=== PATIENT | male | born 1945 | race Caucasian/White ===

== ENCOUNTER → 2016-10-31 | Outpatient (CLI) | payer MEDICARE | LOC: MW.CHFP 08:00 | PROVIDERS: ATTEND Emergency Medicine | DX: Z51.81 Encounter for therapeutic drug level monitoring (principal); Z79.01 Long term (current) use of anticoagulants; I48.91 Unspecified atrial fibrillation | CPT/HCPCS: 85610; 99211 ==

== ENCOUNTER → 2016-12-01 | Outpatient (CLI) | payer MEDICARE | LOC: MW.CHFP 08:00 | PROVIDERS: ATTEND Emergency Medicine | DX: Z51.81 Encounter for therapeutic drug level monitoring (principal); Z79.01 Long term (current) use of anticoagulants; I48.91 Unspecified atrial fibrillation | CPT/HCPCS: 85610; 99211 ==

== ENCOUNTER → 2017-01-02 | Outpatient (CLI) | payer MEDICARE | LOC: MW.CHFP 08:00 | PROVIDERS: ATTEND Emergency Medicine | DX: Z51.81 Encounter for therapeutic drug level monitoring (principal); Z79.01 Long term (current) use of anticoagulants; I48.91 Unspecified atrial fibrillation | CPT/HCPCS: 85610; 99211 ==

== ENCOUNTER 2017-01-14 13:00 | Emergency (ER) | payer MEDICARE ==
--- NOTE | 2017-01-14 14:36 | EDM.PDOC ---
ED HPI GENERAL MEDICAL PROBLEM - General Chief Complaint: Respiratory Problem Stated Complaint: LOW ENERGY/NOT FEELING WELL Time Seen by Provider: 01/14/17 13:30 Source of Information: Reports: Patient (poor historian), Family () History Limitations: Reports: No Limitations - History of Present Illness INITIAL COMMENTS - FREE TEXT/NARRATIVE: Presents with his . The patient states that he was to see Dr. Cheney and Dr. Davison in [place] one week ago. They are his usual cardiology care givers. At that time and they made a change in his medication from Amiodarone and digitoxin to quinidine and Mexiletine. He states that the doctors told him the reason they changed his medicines is that they had "outgrown their usefulness ". For the past week, since they changed his medications around he has been experiencing weakness and he gets short of breath when he walks in his house. He did not go see his primary care provider Dr. Shields here in [facility] but instead came to the ER. He denies chest pain, fever, nausea, vomiting or shortness of breath at rest or during the night. - Related Data Allergies Allergy/AdvReac Type Severity Reaction Status Date / Time No Known Allergies Allergy Verified 01/14/17 13:07 Home Meds: Home Meds Aspirin 81 mg PO ONETIME 07/14/16 [History] Carvedilol 25 mg PO BID 07/14/16 [History] Fosinopril [Monopril] 40 mg PO DAILY 07/14/16 [History] Furosemide [Lasix] 80 mg PO DAILY 07/14/16 [History] Glimepiride 2 mg PO WITHBREAKFAST 07/14/16 [History] Insulin Glarg,Human.Rec.Analog [LantUS Solostar] 38 unit SUBCUT DAILY 07/14/16 [ History] Multivitamin [One Daily] 1 each PO DAILY 07/14/16 [History] Nitroglycerin [Nitrostat] 0.4 mg SL ASDIRECTED PRN 07/14/16 [History] Rosuvastatin [Crestor] 10 mg PO BEDTIME 07/14/16 [History] Spironolactone [Aldactone] 25 mg PO DAILY 07/14/16 [History] Warfarin [Coumadin] 5 mg PO DAILY 07/14/16 [History] Mexiletine HCl 150 mg PO DAILY 01/14/17 [History] Temazepam 15 mg PO BEDTIME 01/14/17 [History] quiNIDine Gluconate [Quinidine Gluconate] 324 mg PO DAILY 01/14/17 [History] Past Medical History HEENT History: Reports: Hard of Hearing Cardiovascular History: Reports: Aneurysm, Automatic Implantable Cardioverter Defibrillators, Bypass, Pacemaker Endocrine/Metabolic History: Reports: Diabetes, Type II - Past Surgical History HEENT Surgical History: Reports: None Cardiovascular Surgical History: Reports: None Endocrine Surgical History: Reports: None Social & Family History - Family History Family Medical History: Noncontributory - Tobacco Use Smoking Status *Q: Former Smoker Used Tobacco, but Quit: Yes Month Tobacco Last Used: 20 years ago Second Hand Smoke Exposure: No - Caffeine Use Caffeine Use: Reports: Coffee Caffeine Use Comment: 2-3 cups/day - Recreational Drug Use Recreational Drug Use: No ED ROS GENERAL - Review of Systems Review Of Systems: ROS reveals no pertinent complaints other than HPI. 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 time) Respiratory/Chest: No Respiratory Distress, Lungs Clear, Normal Breath Sounds Cardiovascular: Normal Peripheral Pulses, Regular Rate, Rhythm, No Murmur, Other (Mild ankle edema which the patient states he has had for a long time) GI/Abdominal: Normal Bowel Sounds, Soft Back Exam: Normal Inspection Extremities: Normal Inspection Neurological: Alert, Oriented, Normal Cognition, Other (Cheerful and joking) Psychiatric: Normal Affect, Normal Mood Skin Exam: Warm, Dry, Intact, Normal Color, No Rash Lymphatic: No Adenopathy Course - Vital Signs Last Recorded V/S: Last Vital Signs Temp Pulse 72 01/14/17 14:41 Resp 20 01/14/17 14:41 BP 98/57 L 01/14/17 14:41 Pulse Ox 97 01/14/17 14:41 - Orders/Labs/Meds Orders: Active Orders 24 hr Category Date Time Status EKG Documentation Completion [RC] STAT Care 01/14/17 13:44 Active Chest 2V [CR] Stat Exams 01/14/17 13:45 Ordered Labs: Laboratory Tests 01/14/17 01/14/17 01/14/17 Range/Units 13:38 13:38 13:38 WBC 8.67 (4.0-11.0) K/uL RBC 3.53 L (4.50-5.90) M/uL Hgb 10.7 L (13.0-17.0) g/dL Hct 33.8 L (38.0-50.0) % MCV 95.8 (80.0-98.0) fL MCH 30.3 (27.0-32.0) pg MCHC 31.7 (31.0-37.0) g/dL RDW Std Deviation 59.0 (28.0-62.0) fl RDW Coeff of Kierra 17 H (11.0-15.0) % Plt Count 164 (150-400) K/uL MPV 9.80 (7.40-12.00) fL Neut % (Auto) 78.2 (48.0-80.0) % Lymph % (Auto) 11.8 L (16.0-40.0) % [place] % (Auto) 8.3 (0.0-15.0) % Eos % (Auto) 1.4 (0.0-7.0) % Baso % (Auto) 0.3 (0.0-1.5) % Neut # (Auto) 6.8 H (1.4-5.7) K/uL Lymph # (Auto) 1.0 (0.6-2.4) K/uL [place] # (Auto) 0.7 (0.0-0.8) K/uL Eos # (Auto) 0.1 (0.0-0.7) K/uL Baso # (Auto) 0.0 (0.0-0.1) K/uL Nucleated RBC % 0.0 /100WBC Nucleated RBCs # 0 K/uL Sodium 133 L (136-146) mmol/L Potassium 5.0 (3.5-5.1) mmol/L Chloride 102 (98-110) mmol/L Carbon Dioxide 19 L (21-31) mmol/L BUN 43 H (6.0-23.0) mg/dL Creatinine 2.4 H (0.6-1.5) mg/dL Est Cr Clr Drug Dosing 27.41 mL/min Estimated GFR (MDRD) 26.7 ml/min Glucose 239 H (60-110) mg/dL Calcium 8.3 L (8.8-10.8) mg/dL Total Bilirubin 0.8 (0.1-1.5) mg/dL AST 19 (5-40) IU/L ALT 19 (8-54) IU/L Alkaline Phosphatase 41 (40-150) Troponin I < 0.10 (0.0-0.29) NG/ML B-Natriuretic Peptide (<100) PG/ML Total Protein 6.9 (6.0-8.0) g/dL Albumin 4.1 (3.4-4.8) g/dL Globulin 2.8 (2.0-3.5) g/dL Albumin/Globulin Ratio 1.5 (1.3-2.8) 01/14/17 Range/Units 13:38 WBC (4.0-11.0) K/uL RBC (4.50-5.90) M/uL Hgb (13.0-17.0) g/dL Hct (38.0-50.0) % MCV (80.0-98.0) fL MCH (27.0-32.0) pg MCHC (31.0-37.0) g/dL RDW Std Deviation (28.0-62.0) fl RDW Coeff of Kierra (11.0-15.0) % Plt Count (150-400) K/uL MPV (7.40-12.00) fL Neut % (Auto) (48.0-80.0) % Lymph % (Auto) (16.0-40.0) % [place] % (Auto) (0.0-15.0) % Eos % (Auto) (0.0-7.0) % Baso % (Auto) (0.0-1.5) % Neut # (Auto) (1.4-5.7) K/uL Lymph # (Auto) (0.6-2.4) K/uL [place] # (Auto) (0.0-0.8) K/uL Eos # (Auto) (0.0-0.7) K/uL Baso # (Auto) (0.0-0.1) K/uL Nucleated RBC % /100WBC Nucleated RBCs # K/uL Sodium (136-146) mmol/L Potassium (3.5-5.1) mmol/L Chloride (98-110) mmol/L Carbon Dioxide (21-31) mmol/L BUN (6.0-23.0) mg/dL Creatinine (0.6-1.5) mg/dL Est Cr Clr Drug Dosing mL/min Estimated GFR (MDRD) ml/min Glucose (60-110) mg/dL Calcium (8.8-10.8) mg/dL Total Bilirubin (0.1-1.5) mg/dL AST (5-40) IU/L ALT (8-54) IU/L Alkaline Phosphatase (40-150) Troponin I (0.0-0.29) NG/ML B-Natriuretic Peptide 310 H (<100) PG/ML Total Protein (6.0-8.0) g/dL Albumin (3.4-4.8) g/dL Globulin (2.0-3.5) g/dL Albumin/Globulin Ratio (1.3-2.8) - Re-Assessments/Exams Free Text/Narrative Re-Assessment/Exam: 01/14/17 15:26 Dr. Shields, his primary care physician stop by the ER and the case was reviewed with him Free Text/Narrative Re-Assessment/Exam: 01/14/17 15:27 Discussion with patient that his chest x-ray and EKG is unchanged from previous. He is mildly anemic and has some renal failure. The patient states that he has had a kidney problem for a long time. He states he will followup with Dr. Shields early next week. Departure - Departure Time of Disposition: 15:28 Disposition: Home, Self-Care 01 Condition: good Clinical Impression: Exercise intolerance - Discharge Information Forms: ED Department Discharge Additional Instructions: 1. Follow up with Dr. Shields as discussed. Return promptly for chest pain, shortness of breath at rest, vomiting. - My Orders Last 24 Hours: My Active Orders 01/14/17 13:44 EKG Documentation Completion [RC] STAT 01/14/17 13:45 Chest 2V [CR] Stat - Assessment/Plan Last 24 Hours: My Active Orders 01/14/17 13:44 EKG Documentation Completion [RC] STAT 01/14/17 13:45 Chest 2V [CR] Stat
[2017-01-14 18:16] VITALS: BP 91/60
--- NOTE | 2017-01-16 14:36 | CR ---
EXAM DATE: 01/14/17 PATIENT'S AGE: 71 Patient: TERRENCE ROBERTSON Facility: [place], [place] Site . Site : 1945 Study: XRay Chest [id number]/3/2017 2:17:55 PM Ordering Physician: Doctor Foley Final Report: INDICATION: Shortness of breath on exertion. Technique: Chest 2 views. Comparison: September 2016. Impression: Stable cardiomegaly, pacemaker/ICD placement. Stable cardiomegaly and pulmonary vascularity. Stable mild diffuse prominence of the pulmonary interstitium. No consolidation effusion or pneumothorax with no other significant change. Dictated by Néstor Love MD @ Jan 14 2017 2:21PM (Electronic Signature) Report Signed by Proxy. RAUL
== END 2017-01-14 15:45 | disposition home or self-care (01) ==
LOC: MW.ED 13:00
DX: R68.89 Other general symptoms and signs (principal); E11.9 Type 2 diabetes mellitus without complications; Z95.810 Presence of automatic (implantable) cardiac defibrillator; Z95.0 Presence of cardiac pacemaker; Z95.1 Presence of aortocoronary bypass graft; Z79.82 Long term (current) use of aspirin; Z79.01 Long term (current) use of anticoagulants; Z79.4 Long term (current) use of insulin; Z79.899 Other long term (current) drug therapy; Z87.891 Personal history of nicotine dependence
CPT/HCPCS: 71020; 71020-26; 80053; 83880; 84484; 85025; 93005; 99283; 99285-25

== ENCOUNTER 2017-01-20 04:14 | Inpatient (IN) | payer MEDICARE ==
[2017-01-20] MEDS ORDERED: Bumetanide 1 MG/4 ML MDV IVPUSH ONE (04:38)
--- NOTE | 2017-01-20 06:38 | EDM.PDOC ---
ED HPI GENERAL MEDICAL PROBLEM - General Chief Complaint: Neurological Problem Stated Complaint: WEAKNESS Time Seen by Provider: 01/20/17 04:17 Source of Information: Reports: Patient, Family History Limitations: Reports: No Limitations - History of Present Illness INITIAL COMMENTS - FREE TEXT/NARRATIVE: HISTORY AND PHYSICAL: History of present illness: [71-year-old male with a history of CHF and a pacemaker in place now presents emergency department complaining of worsening shortness of breath. Per patient has a baseline of mild tachypnea however he is weaker and slightly more short of breath than normal for him currently. He also has a history of renal insufficiency. Patient was at his baseline last night and went to bed in his own bed. His are to get up and then found him after he had slumped to the floor. Patient was too weak to get up himself and he seemed confused. EMS was called and patient was found to be hypoxic. His oxygen was supplemented. On arrival in emergency department he is alert and communicative and at his mental status baseline. He continues to be weak and reports slightly more short of breath than usual he is also had increased lower extremity swelling as well as orthopnea. He reports being compliant with his Lasix and his mental health worker is in [place]. No chest pain fevers chills sweats or shaking chills] per EMS blood glucose was 189 on seen Review of systems: , As per history of present illness and below otherwise all systems reviewed and negative. Past medical history: As per history of present illness and as reviewed below otherwise noncontributory. Surgical history: As per history of present illness and as reviewed below otherwise noncontributory. Social history: No reported history of drug or alcohol abuse. Family history: As per history of present illness and as reviewed below otherwise noncontributory. Physical exam: HEENT: Atraumatic, normocephalic, pupils reactive, negative for conjunctival pallor or scleral icterus, mucous membranes moist, throat clear, neck supple, nontender, trachea midline. Lungs: Mild rales bilateral lung bases, breath sounds equal bilaterally, chest nontender. Mild hypoxia on room air at 89%. 94% on 2 L Heart: S1S2, regular, negative for clicks, rubs, or JVD. Abdomen: Soft, nondistended, nontender. Negative for masses or hepatosplenomegaly. Negative for costovertebral tenderness. Pelvis: Stable nontender. Genitourinary: Deferred. Rectal: Deferred. Extremities: Atraumatic, negative for cords or calf pain. Neurovascular unremarkable. 2+ pitting edema bilateral lower extremity with no asymmetry Neuro: Awake, alert, oriented. Cranial nerves II through XII unremarkable. Cerebellum unremarkable. Motor and sensory unremarkable throughout. Exam nonfocal. Diagnostics: [Chest x-ray with significant cardiomegaly and congestive changes, no infiltrate ] EKG with ventricular paced rhythm at 70 no STEMI Patient's BUN/creatinine elevated. He has a previous history of renal insufficiency however his creatinine today is 3. BNP is approximately 600, double prior value consistent with CHF exacerbation Therapeutics: [Diuresis initiated with Bumex. Patient admits pulse ox in the mid 90s on 2 L nasal cannula. Impression: [] Plan: [Patient perceives the need to urinate however he is unable to do so spontaneously. Initial straight catheter yielded 450 mL of urine and on repeat evaluation bladder scan shows greater than 300 mL of urine again so Paez catheter was placed. Case discussed with Dr. Ruddy Vela hospitalist balloon sander's were history and findings and agrees with inpatient admission to the ICU if patient continues to need BiPAP for to inpatient telemetry bed if his clinical status improves. He will address further workup and treatment as needed. Dr. Vela is aware of the progression of renal insufficiency.] Definitive disposition and diagnosis as appropriate pending reevaluation and review of above. - Related Data Allergies Allergy/AdvReac Type Severity Reaction Status Date / Time No Known Allergies Allergy Verified 01/14/17 13:07 Home Meds: Home Meds Aspirin 81 mg PO ONETIME 07/14/16 [History] Carvedilol 25 mg PO BID 07/14/16 [History] Fosinopril [Monopril] 20 mg PO BID 07/14/16 [History] Furosemide [Lasix] 40 mg PO TID 07/14/16 [History] Glimepiride 2 mg PO WITHBREAKFAST 07/14/16 [History] Insulin Glarg,Human.Rec.Analog [LantUS Solostar] 36 unit SUBCUT DAILY 07/14/16 [ History] Multivitamin [One Daily] 1 each PO DAILY 07/14/16 [History] Nitroglycerin [Nitrostat] 0.4 mg SL ASDIRECTED PRN 07/14/16 [History] Rosuvastatin [Crestor] 10 mg PO BEDTIME 07/14/16 [History] Spironolactone [Aldactone] 25 mg PO DAILY 07/14/16 [History] Warfarin [Coumadin] 5 mg PO DAILY 07/14/16 [History] Mexiletine HCl 150 mg PO TID 01/14/17 [History] quiNIDine Gluconate [Quinidine Gluconate] 324 mg PO DAILY 01/14/17 [History] Past Medical History HEENT History: Reports: Hard of Hearing Cardiovascular History: Reports: Aneurysm, Automatic Implantable Cardioverter Defibrillators, Bypass, Pacemaker Endocrine/Metabolic History: Reports: Diabetes, Type II - Infectious Disease History Infectious Disease History: Reports: Chicken Pox, Measles, Mumps - Past Surgical History HEENT Surgical History: Reports: None Cardiovascular Surgical History: Reports: None Endocrine Surgical History: Reports: None Social & Family History - Family History Family Medical History: Noncontributory - Tobacco Use Smoking Status *Q: Former Smoker Used Tobacco, but Quit: Yes Month Tobacco Last Used: years Second Hand Smoke Exposure: No - Caffeine Use Caffeine Use: Reports: None Caffeine Use Comment: 2-3 cups/day - Recreational Drug Use Recreational Drug Use: No ED ROS GENERAL - Review of Systems Review Of Systems: See Below (History of present illness) ED EXAM, GENERAL - Physical Exam Exam: See Below (History of present illness) Course - Vital Signs Last Recorded V/S: Last Vital Signs Temp 36.4 C 01/20/17 05:15 Pulse 73 01/20/17 06:30 Resp 32 H 01/20/17 06:30 BP 119/71 01/20/17 06:30 Pulse Ox 97 01/20/17 06:30 - Orders/Labs/Meds Orders: Active Orders 24 hr Category Date Time Status Admission Status [Patient Status] [ADT] Stat ADT 01/20/17 06:43 Active EKG Documentation Completion [RC] STAT Care 01/20/17 04:34 Active Chest 1V Frontal [CR] Stat Exams 01/20/17 04:34 Taken Peripheral IV Insertion Adult [OM.PC] Stat Oth 01/20/17 04:34 Ordered Labs: Laboratory Tests 01/20/17 01/20/17 01/20/17 Range/Units 04:30 04:30 04:30 WBC 9.71 (4.0-11.0) K/uL RBC 3.79 L (4.50-5.90) M/uL Hgb 11.6 L (13.0-17.0) g/dL Hct 36.1 L (38.0-50.0) % MCV 95.3 (80.0-98.0) fL MCH 30.6 (27.0-32.0) pg MCHC 32.1 (31.0-37.0) g/dL RDW Std Deviation 60.1 (28.0-62.0) fl RDW Coeff of Kierra 17 H (11.0-15.0) % Plt Count 159 (150-400) K/uL MPV 9.50 (7.40-12.00) fL Neut % (Auto) 82.6 H (48.0-80.0) % Lymph % (Auto) 9.6 L (16.0-40.0) % [place] % (Auto) 6.5 (0.0-15.0) % Eos % (Auto) 0.7 (0.0-7.0) % Baso % (Auto) 0.6 (0.0-1.5) % Neut # (Auto) 8.0 H (1.4-5.7) K/uL Lymph # (Auto) 0.9 (0.6-2.4) K/uL [place] # (Auto) 0.6 (0.0-0.8) K/uL Eos # (Auto) 0.1 (0.0-0.7) K/uL Baso # (Auto) 0.1 (0.0-0.1) K/uL Nucleated RBC % 0.0 /100WBC Nucleated RBCs # 0 K/uL ABG pH (7.35-7.45) ABG pCO2 (35-45) mmHG ABG pO2 (75-100) mmHG ABG HCO3 (22-26) mEq/L ABG Total CO2 ABG Base Excess (-2.0-2.0) Sodium 132 L (136-146) mmol/L Potassium 5.5 H (3.5-5.1) mmol/L Chloride 98 (98-110) mmol/L Carbon Dioxide 19 L (21-31) mmol/L BUN 67 H (6.0-23.0) mg/dL Creatinine 3.0 H (0.6-1.5) mg/dL Est Cr Clr Drug Dosing 21.22 mL/min Estimated GFR (MDRD) 20.6 ml/min Glucose 174 H (60-110) mg/dL Calcium 8.4 L (8.8-10.8) mg/dL Total Bilirubin 1.2 (0.1-1.5) mg/dL AST 35 (5-40) IU/L ALT 38 (8-54) IU/L Alkaline Phosphatase 44 (40-150) Troponin I < 0.10 (0.0-0.29) NG/ML B-Natriuretic Peptide (<100) PG/ML Total Protein 7.6 (6.0-8.0) g/dL Albumin 4.3 (3.4-4.8) g/dL Globulin 3.3 (2.0-3.5) g/dL Albumin/Globulin Ratio 1.3 (1.3-2.8) Urine Color Urine Appearance Urine pH (5.0-8.0) Ur Specific [place] (1.001-1.035) Urine Protein (NEGATIVE) mg/dL Urine Glucose (UA) (NEGATIVE) mg/dL Urine Ketones (NEGATIVE) mg/dL Urine Occult Blood (NEGATIVE) Urine Nitrite (NEGATIVE) Urine Bilirubin (NEGATIVE) Urine Urobilinogen (<2.0) EU/dL Ur Leukocyte Esterase (NEGATIVE) Urine RBC (0-2/HPF) Urine WBC (0-5/HPF) Ur Epithelial Cells (NONE-FEW) Urine Bacteria (NEGATIVE) 01/20/17 01/20/17 01/20/17 Range/Units 04:30 04:45 05:05 WBC (4.0-11.0) K/uL RBC (4.50-5.90) M/uL Hgb (13.0-17.0) g/dL Hct (38.0-50.0) % MCV (80.0-98.0) fL MCH (27.0-32.0) pg MCHC (31.0-37.0) g/dL RDW Std Deviation (28.0-62.0) fl RDW Coeff of Kierra (11.0-15.0) % Plt Count (150-400) K/uL MPV (7.40-12.00) fL Neut % (Auto) (48.0-80.0) % Lymph % (Auto) (16.0-40.0) % [place] % (Auto) (0.0-15.0) % Eos % (Auto) (0.0-7.0) % Baso % (Auto) (0.0-1.5) % Neut # (Auto) (1.4-5.7) K/uL Lymph # (Auto) (0.6-2.4) K/uL [place] # (Auto) (0.0-0.8) K/uL Eos # (Auto) (0.0-0.7) K/uL Baso # (Auto) (0.0-0.1) K/uL Nucleated RBC % /100WBC Nucleated RBCs # K/uL ABG pH 7.447 (7.35-7.45) ABG pCO2 29 L (35-45) mmHG ABG pO2 71 L (75-100) mmHG ABG HCO3 20 L (22-26) mEq/L ABG Total CO2 18.5 ABG Base Excess -3.4 L (-2.0-2.0) Sodium (136-146) mmol/L Potassium (3.5-5.1) mmol/L Chloride (98-110) mmol/L Carbon Dioxide (21-31) mmol/L BUN (6.0-23.0) mg/dL Creatinine (0.6-1.5) mg/dL Est Cr Clr Drug Dosing mL/min Estimated GFR (MDRD) ml/min Glucose (60-110) mg/dL Calcium (8.8-10.8) mg/dL Total Bilirubin (0.1-1.5) mg/dL AST (5-40) IU/L ALT (8-54) IU/L Alkaline Phosphatase (40-150) Troponin I (0.0-0.29) NG/ML B-Natriuretic Peptide 613 H (<100) PG/ML Total Protein (6.0-8.0) g/dL Albumin (3.4-4.8) g/dL Globulin (2.0-3.5) g/dL Albumin/Globulin Ratio (1.3-2.8) Urine Color YELLOW Urine Appearance CLEAR Urine pH 5.5 (5.0-8.0) Ur Specific [place] 1.025 (1.001-1.035) Urine Protein NEGATIVE (NEGATIVE) mg/dL Urine Glucose (UA) NEGATIVE (NEGATIVE) mg/dL Urine Ketones NEGATIVE (NEGATIVE) mg/dL Urine Occult Blood TRACE-INTACT (NEGATIVE) Urine Nitrite NEGATIVE (NEGATIVE) Urine Bilirubin NEGATIVE (NEGATIVE) Urine Urobilinogen 0.2 (<2.0) EU/dL Ur Leukocyte Esterase NEGATIVE (NEGATIVE) Urine RBC 0-4 (0-2/HPF) Urine WBC 0-1 (0-5/HPF) Ur Epithelial Cells RARE (NONE-FEW) Urine Bacteria RARE (NEGATIVE) Meds: Medications Discontinued Medications Generic Name Dose Route Start Last Admin Trade Name Freq PRN Reason Stop Dose Admin Bumetanide 1 mg 01/20/17 04:38 01/20/17 04:52 Bumex IVPUSH 01/20/17 04:39 1 mg ONETIME ONE Administration Departure - Departure Time of Disposition: 05:00 Disposition: Admitted As Inpatient 64 Condition: fair Clinical Impression: CHF exacerbation, Hypoxia, Dyspnea, Lower extremity edema - Discharge Information - My Orders Last 24 Hours: My Active Orders 01/20/17 04:34 EKG Documentation Completion [RC] STAT Chest 1V Frontal [CR] Stat Peripheral IV Insertion Adult [OM.PC] Stat 01/20/17 06:43 Admission Status [Patient Status] [ADT] Stat - Assessment/Plan Last 24 Hours: My Active Orders 01/20/17 04:34 EKG Documentation Completion [RC] STAT Chest 1V Frontal [CR] Stat Peripheral IV Insertion Adult [OM.PC] Stat 01/20/17 06:43 Admission Status [Patient Status] [ADT] Stat
--- NOTE | 2017-01-20 11:21 | CR ---
EXAM DATE: 01/20/17 PATIENT'S AGE: 71 Patient: TERRENCE ROBERTSON Facility: [place], [place] Site . Site : 1945 Study: XRay Chest [id number]/9/2017 4:59:26 AM Ordering Physician: [place] Final Report: INDICATION: Weakness, evaluate chest. TECHNIQUE: Chest radiograph 1 view COMPARISON: 01/14/2017. FINDINGS: Patient status post median sternotomy with left subclavian pacemaker leads. Heart size remains enlarged. No underlying congestive heart failure pattern, blunting of costophrenic sulci, or pneumothorax. IMPRESSION: 1. Cardiomegaly with postoperative changes from prior CABG. No acute interval change from 01/14/2017. Dictated by Mike Ellison MD @ 01/20/2017 5:05:36 AM Dictated by: Mike Ellison MD @ 01/20/2017 05:05:40 (Electronic Signature) Report Signed by Proxy. RAUL
[2017-01-20] MEDS ORDERED: Ondansetron 4 MG Tab.DIS PO PRN (12:08)
[2017-01-20] MEDS ORDERED: Heparin Sodium 5,000 Units/ML Vial SUBCUT SCH (12:15)
[2017-01-20] MEDS: Furosemide 40 MG/4 ML VIAL IVPUSH SCH ×2 (12:28→20:52)
[2017-01-20] MEDS ORDERED: Aspirin 81 MG Tab.Chew PO SCH (12:30)
--- NOTE | 2017-01-20 13:19 | CT ---
EXAMINATION: Non contrast CT head. Coronal and sagittal reformats. HISTORY: Altered mental status FINDINGS: No evidence of intra or extra axial hemorrhage, mass, midline shift, hydrocephalus or edema. There is mild generalized atrophy. No hypoattenuation changes in the major vascular territories to suggest acute infarct. No abnormal intracranial calcifications are detected. No evidence of substantial vascular calcifica tions. Paranasal sinuses and mastoid air cells are well aerated without substantial findings. Pituitary fossa appears unremarkable. Calvarium is intact. No evidence of skull fracture. There is a 4.5 x 2.7 cm subcutaneous lipoma with in the left nuchal region. IMPRESSION: 1. Generalized atrophy without acute intracranial findings.
[2017-01-20] MEDS: Acetaminophen 325 MG Tab PO PRN ×2 (16:17→21:57)
[2017-01-20] MEDS: Levofloxacin/Dextrose 5%-Water 750 MG in Premix Bag 1 BAG IV SCH (16:35)
[2017-01-20] MEDS: Insulin Aspart 100 Units/ML 3 ML Pen SUBCUT SCH (16:39)
[2017-01-20] MEDS ORDERED: Calcium Carbonate 500 MG Tab.Chew PO SCH (18:00)
--- NOTE | 2017-01-20 18:29 | PCM.HP ---
H&P History of Present Illness - General Date of Service: 01/20/17 Admit Problem/Dx: CHF exacerbation Source of Information: Patient History Limitations: Reports: No Limitations - History of Present Illness Initial Comments - Free Text/Narative: 71-year-old male admitted 01/20/17 for CHF exacerbation with PMH of ischemic cardiomyopathy with bivalve ICD, CAD, A. fib, systolic and diastolic failure, hypertension, hyperlipidemia, peripheral vascular disease, and chronic kidney disease. Patient initially was brought to emergency room by who stated that over the past 2 weeks he had declining mental status as well as worsening shortness of breath and weakness. She had found him on the floor in the kitchen at 2am that morning after he had gotten up to use the batheroom. She felt that he was at his baseline that night when he went to bed. He denied to her that he fell and said that he was just laying down. Patient was confused and more weak so called EMS who found that he was hypoxic and brought to ED. noted that she has noticed the begin of his decline after he was changed from amiodarone and digoxin to quinidine and Mexiletine by his professional services consultant and hospice clinical supervisor Dr. Cheney and Dr. Davison, [facility]. Change was secondary to worsening lung function. Patient and family both deny that he had any complaints of chest pain, palpitations, fever, chills, syncope, or focal neurologic deficits. They did feel that he had been retaining more water. In ED patient was placed on Bipap secondary to hypoxia and improved significantly. Patient was afebrile with stable blood pressure 110/71 hr 70. CBC was unremarkable, blood gas 7.439 PCO2 33, PO2 57, HCO3 22, INR 2.68. Hyponatremia 132, acute on chronic renal failure BUN 70, CR 2.8, hypocalcemia 8.2, BNP 613. UA unremarkable. Chest x-ray cardiomegaly. Patient admitted for CHF exacerbation - Related Data Allergies/Adverse Reactions: Allergies Allergy/AdvReac Type Severity Reaction Status Date / Time No Known Allergies Allergy Verified 01/14/17 13:07 Home Medications: Home Meds Aspirin 81 mg PO DAILY 07/14/16 [History] Carvedilol 25 mg PO BID 07/14/16 [History] Fosinopril [Monopril] 20 mg PO BID 07/14/16 [History] Furosemide [Lasix] 20 mg PO QPM 07/14/16 [History] Glimepiride 2 mg PO WITHBREAKFAST 07/14/16 [History] Insulin Glarg,Human.Rec.Analog [LantUS Solostar] 36 - 40 unit SUBCUT DAILY 07/14 [History] Multivitamin [One Daily] 1 each PO DAILY 07/14/16 [History] Nitroglycerin [Nitrostat] 0.4 mg SL ASDIRECTED PRN 07/14/16 [History] Rosuvastatin [Crestor] 10 mg PO BEDTIME 07/14/16 [History] Spironolactone [Aldactone] 25 mg PO DAILY 07/14/16 [History] Warfarin [Coumadin] 5 mg PO DAILY 07/14/16 [History] Mexiletine HCl 150 mg PO TID 01/14/17 [History] quiNIDine Gluconate [Quinidine Gluconate] 324 mg PO Q8H 01/14/17 [History] Amiodarone [Cordarone] 50 mg PO DAILY 01/20/17 [History] Furosemide 20 mg PO QAM 01/20/17 [History] E[place]-3/DHA/Epa/Fish Oil [[place]-3 Fish Oil 1,000 MG Sfgl] 1,000 mg PO DAILY 04/30 [History] Past Medical History HEENT History: Reports: Hard of Hearing Cardiovascular History: Reports: Aneurysm, Automatic Implantable Cardioverter Defibrillators, Bypass, Pacemaker Endocrine/Metabolic History: Reports: Diabetes, Type II - Infectious Disease History Infectious Disease History: Reports: Chicken Pox, Measles, Mumps - Past Surgical History HEENT Surgical History: Reports: None Cardiovascular Surgical History: Reports: None Endocrine Surgical History: Reports: None Social & Family History - Family History Family Medical History: Noncontributory - Tobacco Use Smoking Status *Q: Former Smoker Used Tobacco, but Quit: Yes Month Tobacco Last Used: 1995 Second Hand Smoke Exposure: No - Caffeine Use Caffeine Use: Reports: None Caffeine Use Comment: 2-3 cups/day - Recreational Drug Use Recreational Drug Use: No H&P Review of Systems - Review of Systems: Review Of Systems: See Below General: Reports: Weakness, Fatigue. Denies: Fever, Chills, Malaise, Night Sweats HEENT: Denies: Headaches, Sinus Congestion, Sore Throat Pulmonary: Reports: Shortness of Breath, Wheezing. Denies: Pleuritic Chest Pain , Cough, Sputum Cardiovascular: Reports: Dyspnea on Exertion, Orthopnea, PND, Edema. Denies: Chest Pain, Palpitations, Syncope Gastrointestinal: Reports: Diarrhea. Denies: Abdominal Pain, Black Stool, Bloody Stool, Nausea, Vomiting Genitourinary: Reports: Retention. Denies: Dysuria, Hematuria Musculoskeletal: Reports: Back Pain. Denies: Neck Pain, Leg Pain Skin: Denies: Cyanosis Psychiatric: Reports: Confusion Neurological: Reports: Confusion. Denies: Dizziness, Headache Hematologic/Lymphatic: Reports: Easy Bleeding Exam - Exam Exam: See Below - Vital Signs Vital Signs: Last Vital Signs Temp 37.1 C 01/20/17 16:07 Pulse 70 01/20/17 16:07 Resp 24 H 01/20/17 16:07 BP 98/57 L 01/20/17 16:07 Pulse Ox 100 01/20/17 16:07 Weight: 98 kg - Exam Quality Assessment: Supplemental Oxygen, Urinary Catheter, DVT Prophylaxis General: Alert, Cooperative HEENT: Conjunctiva Clear, EACs Clear, EOMI, Hearing Intact, Mucosa Moist & [place] , Nares Patent, Normal Nasal Septum, Posterior Pharynx Clear, PERRLA Neck: Supple, Trachea Midline, 2 Lungs: Crackles, Rales Cardiovascular: Regular Rate, Regular Rhythm Abdomen: Normal Bowel Sounds, Soft, Distention. No: Guarding, Rigidity, Rebound , Tenderness Back Exam: Normal Inspection Extremities: Edema. No: Calf Tenderness Peripheral Pulses: 1+: Posterior Tibial (L), Posterior Tibial (R), Dorsalis Pedis (L), Dorsalis Pedis (R), 2+: Radial (L), Radial (R) Skin: Warm, Dry, Intact Neurological: Cranial Nerves Intact Neuro Extensive - Mental Status: Alert, Disorientation to Place, Disorientation to Time, Inattentive, Memory Loss-Recent Events, Nl Response to Commands Neuro Extensive - Motor, Sensory, Reflexes: CN II-XII Intact, Normal Gait, Normal Reflexes Psychiatric: Alert, Normal Affect, Normal Mood - Patient Data Lab Results last 24 hrs: Laboratory Results - last 24 hr 01/20/17 01/20/17 01/20/17 Range/Units 09:05 10:35 11:27 INR 2.68 H (0.86-1.11) ABG pH (7.35-7.45) ABG pCO2 (35-45) mmHG ABG pO2 (75-100) mmHG ABG HCO3 (22-26) mEq/L ABG Total CO2 ABG Base Excess (-2.0-2.0) Sodium (136-146) mmol/L Potassium (3.5-5.1) mmol/L Chloride (98-110) mmol/L Carbon Dioxide (21-31) mmol/L BUN (6.0-23.0) mg/dL Creatinine (0.6-1.5) mg/dL Est Cr Clr Drug Dosing mL/min Estimated GFR (MDRD) ml/min Glucose (60-110) mg/dL POC Glucose 143 H 160 H (60-110) mg/dL Calcium (8.8-10.8) mg/dL Total Bilirubin (0.1-1.5) mg/dL AST (5-40) IU/L ALT (8-54) IU/L Alkaline Phosphatase (40-150) Total Protein (6.0-8.0) g/dL Albumin (3.4-4.8) g/dL Globulin (2.0-3.5) g/dL Albumin/Globulin Ratio (1.3-2.8) 01/20/17 01/20/17 Range/Units 12:50 13:15 INR (0.86-1.11) ABG pH 7.439 (7.35-7.45) ABG pCO2 33 L (35-45) mmHG ABG pO2 57 L (75-100) mmHG ABG HCO3 22 (22-26) mEq/L ABG Total CO2 20.2 ABG Base Excess -1.9 (-2.0-2.0) Sodium 132 L (136-146) mmol/L Potassium 4.9 (3.5-5.1) mmol/L Chloride 99 (98-110) mmol/L Carbon Dioxide 20 L (21-31) mmol/L BUN 70 H (6.0-23.0) mg/dL Creatinine 2.8 H (0.6-1.5) mg/dL Est Cr Clr Drug Dosing 22.82 mL/min Estimated GFR (MDRD) 22.3 ml/min Glucose 141 H (60-110) mg/dL POC Glucose (60-110) mg/dL Calcium 8.2 L (8.8-10.8) mg/dL Total Bilirubin 1.1 (0.1-1.5) mg/dL AST 50 H (5-40) IU/L ALT 47 (8-54) IU/L Alkaline Phosphatase 41 (40-150) Total Protein 7.0 (6.0-8.0) g/dL Albumin 3.9 (3.4-4.8) g/dL Globulin 3.1 (2.0-3.5) g/dL Albumin/Globulin Ratio 1.3 (1.3-2.8) Result Diagrams: 01/20/17 04:30 01/20/17 12:50 Inocente Results last 24 hrs: Microbiology 01/20/17 15:15 Clostridium difficile Toxin A&B (M) - Final Stool / Feces - Stool, Liquid Negative for C.Diff Toxin/AG 01/20/17 15:15 Campylobacter Antigen Assay - Final Stool / Feces - Stool, Liquid NEGATIVE CAMPYLOBACTER AG 01/20/17 15:15 Stool for WBCs - Final Stool / Feces - Stool, Liquid POSITIVE FOR WBC'S *Q Meaningful Use (ADM) - VTE *Q VTE Criteria *Q: - Stroke *Q Stroke Criteria *Q: - AMI *Q AMI Criteria *Q: - Problem List (1) A-fib SNOMED Code(s): 88384633 ICD Code: I48.91 - UNSPECIFIED ATRIAL FIBRILLATION Status: Acute Priority : High Current Visit: Yes Qualifiers: Atrial fibrillation type: chronic Qualified Code(s): I48.2 - Chronic atrial fibrillation (2) CHF exacerbation SNOMED Code(s): 64813589 ICD Code: I50.9 - HEART FAILURE, UNSPECIFIED Status: Chronic Priority: High Current Visit: Yes Qualifiers: Congestive heart failure type: combined Qualified Code(s): I50.43 - Acute on chronic combined systolic (congestive) and diastolic (congestive) heart failure (3) Dyspnea SNOMED Code(s): 952105361 ICD Code: R06.00 - DYSPNEA, UNSPECIFIED Status: Acute Priority: High Current Visit: Yes Qualifiers: Dyspnea type: orthopnea Qualified Code(s): R06.01 - Orthopnea (4) Acute on chronic renal insufficiency SNOMED Code(s): 432627442 ICD Code: N28.9 - DISORDER OF KIDNEY AND URETER, UNSPECIFIED; N18.9 - CHRONIC KIDNEY DISEASE, UNSPECIFIED Status: Acute Priority: High Current Visit: Yes (5) Urinary retention SNOMED Code(s): 662979099 ICD Code: R33.9 - RETENTION OF URINE, UNSPECIFIED Status: Acute Priority : High Current Visit: Yes Problem List Initiated/Reviewed/Updated: Yes Orders Last 24hrs: Active Orders 24 hr Category Date Time Status Patient Status [ADT] Routine ADT 01/20/17 12:08 Active Antiembolic Devices [RC] PER UNIT ROUTINE Care 01/20/17 12:12 Active Height and Weight [RC] DAILY Care 01/20/17 12:08 Active Intake and Output [RC] Q12H Care 01/20/17 12:09 Active Oxygen Therapy [RC] PRN Care 01/20/17 12:08 Active Pulse Oximetry [RC] CONTINUOUS Care 01/20/17 12:09 Active Telemetry Monitoring [Cardiac Monitoring] [RC] Q8H Care 01/20/17 07:30 Active Up With Assistance [RC] ASDIRECTED Care 01/20/17 12:08 Active Urinary Catheter Assessment [RC] Q12H Care 01/20/17 12:08 Active Vital Signs [RC] Q4H Care 01/20/17 12:08 Active 2 Gram Sodium Diet [DIET] Diet 01/20/17 Lunch Active Fluid Restriction [DIET] Diet 01/20/17 Dinner Active Echo Comp wo Cont [US] Routine Exams 01/20/17 12:16 Ordered CBC WITH AUTO DIFF [HEME] AM Lab 01/21/17 05:11 Ordered CBC WITH AUTO DIFF [HEME] AM Lab 01/22/17 05:11 Ordered CBC WITH AUTO DIFF [HEME] AM Lab 01/23/17 05:11 Ordered CBC WITH AUTO DIFF [HEME] AM Lab 01/24/17 05:11 Ordered COMPREHENSIVE METABOLIC PN,CMP [CHEM] DAILY Lab 01/21/17 12:15 Ordered COMPREHENSIVE METABOLIC PN,CMP [CHEM] DAILY Lab 01/22/17 12:15 Ordered COMPREHENSIVE METABOLIC PN,CMP [CHEM] DAILY Lab 01/23/17 12:15 Ordered CULTURE STOOL + CAMPY+SHIGATOX [RM] Routine Lab 01/20/17 15:15 Results MAGNESIUM [CHEM] AM Lab 01/21/17 05:11 Ordered MAGNESIUM [CHEM] AM Lab 01/22/17 05:11 Ordered MAGNESIUM [CHEM] AM Lab 01/23/17 05:11 Ordered MAGNESIUM [CHEM] AM Lab 01/24/17 05:11 Ordered Acetaminophen [Tylenol] Med 01/20/17 12:08 Active 650 mg PO Q4H PRN Amiodarone [Cordarone] Med 01/21/17 09:00 Active 50 mg PO DAILY Aspirin Med 01/20/17 12:30 Active 81 mg PO ONETIME Calcium Carbonate [Tums] Med 01/20/17 18:00 Active 1,000 mg PO ONETIME Digoxin [Lanoxin] Med 01/21/17 09:00 Active 125 mcg PO DAILY Furosemide [Lasix] Med 01/20/17 12:15 Active 80 mg IVPUSH BID Insulin Aspart [NovoLOG] Med 01/20/17 17:00 Active See Protocol SUBCUT TIDAC Insulin Glarg,Human.Rec.Analog [LantUS Solostar] Med 01/20/17 21:00 Active 36 units SUBCUT DAILY Levofloxacin/Dextrose 5%-Water [Levaquin in D5W 750 MG/ Med 01/20/17 16:30 Active 150 ML] 750 mg Premix Bag 1 bag IV Q24H Ondansetron [Zofran ODT] Med 01/20/17 12:08 Active 4 mg PO Q4H PRN Rosuvastatin [Crestor] Med 01/20/17 21:00 Active 10 mg PO BEDTIME Spironolactone [Aldactone] Med 01/21/17 09:00 Active 25 mg PO DAILY Warfarin [Coumadin] Med 01/21/17 14:00 Active 5 mg PO SuMoWeFrSa@1400 Warfarin [Coumadin] Med 01/24/17 14:00 Active 7.5 mg PO TuTh@1400 Sequential Compression Device [OM.PC] Per Unit Routine Oth 01/20/17 12:10 Ordered Resuscitation Status Routine Resus Stat 01/20/17 12:08 Ordered Medication Orders Acetaminophen (Tylenol) 650 mg PO Q4H PRN PRN Reason: Pain (Mild 1-3)/fever Last Admin: 01/20/17 16:17 Dose: 650 mg Amiodarone HCl (Cordarone) 50 mg PO DAILY TIGRE Aspirin (Aspirin) 81 mg PO ONETIME TIGRE Calcium Carbonate/Glycine (Tums) 1,000 mg PO ONETIME TIGRE Digoxin (Lanoxin) 125 mcg PO DAILY [facility] Furosemide (Lasix) 80 mg IVPUSH BID [facility] Last Admin: 01/20/17 12:28 Dose: 80 mg Levofloxacin/Dextrose 750 mg/ (Premix) 150 mls @ 100 mls/hr IV Q24H [facility] Last Admin: 01/20/17 16:35 Dose: 100 mls/hr Insulin Aspart (Novolog) 0 unit SUBCUT TIDAC TIGRE PRN Reason: Protocol Last Admin: 01/20/17 16:39 Dose: 1 unit Insulin Glargine (Lantus Solostar) 36 units SUBCUT DAILY [facility] Ondansetron HCl (Zofran Odt) 4 mg PO Q4H PRN PRN Reason: nausea, able to take PO Rosuvastatin Calcium (Crestor) 10 mg PO BEDTIME [facility]IGRE Spironolactone (Aldactone) 25 mg PO DAILY [facility]IG[facility] Warfarin Sodium (Coumadin) 5 mg PO SuMoWeFrSa@1400 TIGRE Warfarin Sodium (Coumadin) 7.5 mg PO TuTh@1400 [facility] Assessment/Plan Comment:: 71-year-old male admitted 01/20/17 for CHF exacerbation with PMH of ischemic cardiomyopathy with bivalve ICD, CAD, A. fib, systolic and diastolic failure, hypertension, hyperlipidemia, peripheral vascular disease, and chronic kidney disease. Altered mental status: On initial exam patient A&0x1. With hx of being found down and ams did get CT head which was unremarkable. CHF: Patient is vol overloaded on exam but looking at comparison chest x-rays does not seems to be much worse than previous. Patient was a long-term smoker and I suspect there maybe a COPD/asthma component related. Will give duonebs. Change in antiarrhythmics seems to have been associated with his decline in overall status as well. He has history of both systolic and diastolic dysfunction and I suspect he is having more decompensating failure. Unsure if this is directly related to change in antiarrhythmics but will discontinue Mexiletine and quinidine and restart the patient on his previous amiodarone and digoxin. Will also get echo to see if there has been significant decompensation since last. Did try and call Dr. Davison, hospice clinical supervisor, at [facility] who was unavailable but left number for him to call back. Will diurese with 80 mg Lasix IV twice a day monitoring acute on chronic renal failure closely, most likely cardiorenal in origin. 09/2016 Cr was 1.7 now 3.0. Daily weight and I&O's. Htn: Hold hypertensive meds as patient is borderline hypotensive. Increased temp: One febrile episode and some loose stools. Will start Levaquing for pna coverage. No leukocytosis. Urinary retention: Noted to have some urinary retention in ED which could have contributed to worsening renal function. Espinoza placed in ED and will keep for diuresis. May need urology consult before discharge if unable to void without espinoza. VTE: On Coumadin monitor INR, SCD's Dispo: 3-4 days.
[2017-01-20] MEDS: Rosuvastatin 10 MG Tab PO SCH (20:52)
[2017-01-20] MEDS: Insulin Glargine,Human Rec. Analog 100 Units/ML 3 ML Pen SUBCUT SCH (21:02)
[2017-01-21] MEDS: Insulin Aspart 100 Units/ML 3 ML Pen SUBCUT SCH ×3 (07:47→17:53)
[2017-01-21] MEDS: Acetaminophen 325 MG Tab PO PRN ×4 (08:24→21:15)
[2017-01-21] MEDS: Amiodarone 200 MG Tab PO SCH (08:44)
[2017-01-21] MEDS: Digoxin 125 MCG Tab PO SCH (08:45)
[2017-01-21] MEDS ORDERED: Spironolactone 25 MG Tab PO SCH (09:00)
[2017-01-21] MEDS: Insulin Glargine,Human Rec. Analog 100 Units/ML 3 ML Pen SUBCUT SCH ×2 (10:11→21:18)
[2017-01-21] MEDS: Furosemide 40 MG/4 ML VIAL IVPUSH SCH ×2 (11:26→21:04)
--- NOTE | 2017-01-21 12:15 | PCM.PN ---
- Review of Systems Systems Review Comment:: shortness of breath improving, denies any dizziness - Patient Data Vitals - most recent: Last Vital Signs Temp 37.6 C 01/21/17 08:00 Pulse 72 01/21/17 04:00 Resp 31 H 01/21/17 08:00 BP 98/61 01/21/17 08:00 Pulse Ox 99 01/21/17 08:00 Weight - most recent: 97 kg I&O - last 24 hours: Intake & Output 01/20/17 01/21/17 01/21/17 22:59 06:59 14:59 Intake Total 890 940 Output Total 600 2350 Balance 290 -1410 Lab Results last 24 hrs: Laboratory Results - last 24 hr 01/20/17 01/20/17 01/20/17 Range/Units 10:35 12:50 13:15 WBC (4.0-11.0) K/uL RBC (4.50-5.90) M/uL Hgb (13.0-17.0) g/dL Hct (38.0-50.0) % MCV (80.0-98.0) fL MCH (27.0-32.0) pg MCHC (31.0-37.0) g/dL RDW Std Deviation (28.0-62.0) fl RDW Coeff of Kierra (11.0-15.0) % Plt Count (150-400) K/uL MPV (7.40-12.00) fL Neut % (Auto) (48.0-80.0) % Lymph % (Auto) (16.0-40.0) % [place] % (Auto) (0.0-15.0) % Eos % (Auto) (0.0-7.0) % Baso % (Auto) (0.0-1.5) % Neut # (Auto) (1.4-5.7) K/uL Lymph # (Auto) (0.6-2.4) K/uL [place] # (Auto) (0.0-0.8) K/uL Eos # (Auto) (0.0-0.7) K/uL Baso # (Auto) (0.0-0.1) K/uL Nucleated RBC % /100WBC Nucleated RBCs # K/uL INR 2.68 H (0.86-1.11) ABG pH 7.439 (7.35-7.45) ABG pCO2 33 L (35-45) mmHG ABG pO2 57 L (75-100) mmHG ABG HCO3 22 (22-26) mEq/L ABG Total CO2 20.2 ABG Base Excess -1.9 (-2.0-2.0) Sodium 132 L (136-146) mmol/L Potassium 4.9 (3.5-5.1) mmol/L Chloride 99 (98-110) mmol/L Carbon Dioxide 20 L (21-31) mmol/L BUN 70 H (6.0-23.0) mg/dL Creatinine 2.8 H (0.6-1.5) mg/dL Est Cr Clr Drug Dosing 22.82 mL/min Estimated GFR (MDRD) 22.3 ml/min Glucose 141 H (60-110) mg/dL POC Glucose (60-110) mg/dL Calcium 8.2 L (8.8-10.8) mg/dL Magnesium (1.5-2.3) mEq/L Total Bilirubin 1.1 (0.1-1.5) mg/dL AST 50 H (5-40) IU/L ALT 47 (8-54) IU/L Alkaline Phosphatase 41 (40-150) Total Protein 7.0 (6.0-8.0) g/dL Albumin 3.9 (3.4-4.8) g/dL Globulin 3.1 (2.0-3.5) g/dL Albumin/Globulin Ratio 1.3 (1.3-2.8) 01/20/17 01/20/17 01/21/17 Range/Units 16:13 20:48 05:43 WBC 8.84 (4.0-11.0) K/uL RBC 3.63 L (4.50-5.90) M/uL Hgb 10.7 L (13.0-17.0) g/dL Hct 34.4 L (38.0-50.0) % MCV 94.8 (80.0-98.0) fL MCH 29.5 (27.0-32.0) pg MCHC 31.1 (31.0-37.0) g/dL RDW Std Deviation 58.9 (28.0-62.0) fl RDW Coeff of Kierra 17 H (11.0-15.0) % Plt Count 134 L (150-400) K/uL MPV 9.30 (7.40-12.00) fL Neut % (Auto) 82.1 H (48.0-80.0) % Lymph % (Auto) 5.3 L (16.0-40.0) % [place] % (Auto) 10.6 (0.0-15.0) % Eos % (Auto) 1.7 (0.0-7.0) % Baso % (Auto) 0.3 (0.0-1.5) % Neut # (Auto) 7.3 H (1.4-5.7) K/uL Lymph # (Auto) 0.5 L (0.6-2.4) K/uL [place] # (Auto) 0.9 H (0.0-0.8) K/uL Eos # (Auto) 0.2 (0.0-0.7) K/uL Baso # (Auto) 0.0 (0.0-0.1) K/uL Nucleated RBC % 0.0 /100WBC Nucleated RBCs # 0 K/uL INR (0.86-1.11) ABG pH (7.35-7.45) ABG pCO2 (35-45) mmHG ABG pO2 (75-100) mmHG ABG HCO3 (22-26) mEq/L ABG Total CO2 ABG Base Excess (-2.0-2.0) Sodium (136-146) mmol/L Potassium (3.5-5.1) mmol/L Chloride (98-110) mmol/L Carbon Dioxide (21-31) mmol/L BUN (6.0-23.0) mg/dL Creatinine (0.6-1.5) mg/dL Est Cr Clr Drug Dosing mL/min Estimated GFR (MDRD) ml/min Glucose (60-110) mg/dL POC Glucose 177 H 110 (60-110) mg/dL Calcium (8.8-10.8) mg/dL Magnesium (1.5-2.3) mEq/L Total Bilirubin (0.1-1.5) mg/dL AST (5-40) IU/L ALT (8-54) IU/L Alkaline Phosphatase (40-150) Total Protein (6.0-8.0) g/dL Albumin (3.4-4.8) g/dL Globulin (2.0-3.5) g/dL Albumin/Globulin Ratio (1.3-2.8) 01/21/17 01/21/17 01/21/17 Range/Units 05:43 05:43 05:43 WBC (4.0-11.0) K/uL RBC (4.50-5.90) M/uL Hgb (13.0-17.0) g/dL Hct (38.0-50.0) % MCV (80.0-98.0) fL MCH (27.0-32.0) pg MCHC (31.0-37.0) g/dL RDW Std Deviation (28.0-62.0) fl RDW Coeff of Kierra (11.0-15.0) % Plt Count (150-400) K/uL MPV (7.40-12.00) fL Neut % (Auto) (48.0-80.0) % Lymph % (Auto) (16.0-40.0) % [place] % (Auto) (0.0-15.0) % Eos % (Auto) (0.0-7.0) % Baso % (Auto) (0.0-1.5) % Neut # (Auto) (1.4-5.7) K/uL Lymph # (Auto) (0.6-2.4) K/uL [place] # (Auto) (0.0-0.8) K/uL Eos # (Auto) (0.0-0.7) K/uL Baso # (Auto) (0.0-0.1) K/uL Nucleated RBC % /100WBC Nucleated RBCs # K/uL INR 2.32 H (0.86-1.11) ABG pH (7.35-7.45) ABG pCO2 (35-45) mmHG ABG pO2 (75-100) mmHG ABG HCO3 (22-26) mEq/L ABG Total CO2 ABG Base Excess (-2.0-2.0) Sodium 133 L (136-146) mmol/L Potassium 4.4 (3.5-5.1) mmol/L Chloride 97 L (98-110) mmol/L Carbon Dioxide 23 (21-31) mmol/L BUN 67 H (6.0-23.0) mg/dL Creatinine 2.5 H (0.6-1.5) mg/dL Est Cr Clr Drug Dosing 25.55 mL/min Estimated GFR (MDRD) 25.4 ml/min Glucose 104 (60-110) mg/dL POC Glucose (60-110) mg/dL Calcium 8.2 L (8.8-10.8) mg/dL Magnesium 2.3 (1.5-2.3) mEq/L Total Bilirubin 1.0 (0.1-1.5) mg/dL AST 59 H (5-40) IU/L ALT 58 H (8-54) IU/L Alkaline Phosphatase 42 (40-150) Total Protein 7.1 (6.0-8.0) g/dL Albumin 3.9 (3.4-4.8) g/dL Globulin 3.2 (2.0-3.5) g/dL Albumin/Globulin Ratio 1.2 L (1.3-2.8) 01/21/17 01/21/17 01/21/17 Range/Units 06:13 08:00 11:53 WBC (4.0-11.0) K/uL RBC (4.50-5.90) M/uL Hgb (13.0-17.0) g/dL Hct (38.0-50.0) % MCV (80.0-98.0) fL MCH (27.0-32.0) pg MCHC (31.0-37.0) g/dL RDW Std Deviation (28.0-62.0) fl RDW Coeff of Kierra (11.0-15.0) % Plt Count (150-400) K/uL MPV (7.40-12.00) fL Neut % (Auto) (48.0-80.0) % Lymph % (Auto) (16.0-40.0) % [place] % (Auto) (0.0-15.0) % Eos % (Auto) (0.0-7.0) % Baso % (Auto) (0.0-1.5) % Neut # (Auto) (1.4-5.7) K/uL Lymph # (Auto) (0.6-2.4) K/uL [place] # (Auto) (0.0-0.8) K/uL Eos # (Auto) (0.0-0.7) K/uL Baso # (Auto) (0.0-0.1) K/uL Nucleated RBC % /100WBC Nucleated RBCs # K/uL INR (0.86-1.11) ABG pH (7.35-7.45) ABG pCO2 (35-45) mmHG ABG pO2 (75-100) mmHG ABG HCO3 (22-26) mEq/L ABG Total CO2 ABG Base Excess (-2.0-2.0) Sodium (136-146) mmol/L Potassium (3.5-5.1) mmol/L Chloride (98-110) mmol/L Carbon Dioxide (21-31) mmol/L BUN (6.0-23.0) mg/dL Creatinine (0.6-1.5) mg/dL Est Cr Clr Drug Dosing mL/min Estimated GFR (MDRD) ml/min Glucose (60-110) mg/dL POC Glucose 102 112 H 140 H (60-110) mg/dL Calcium (8.8-10.8) mg/dL Magnesium (1.5-2.3) mEq/L Total Bilirubin (0.1-1.5) mg/dL AST (5-40) IU/L ALT (8-54) IU/L Alkaline Phosphatase (40-150) Total Protein (6.0-8.0) g/dL Albumin (3.4-4.8) g/dL Globulin (2.0-3.5) g/dL Albumin/Globulin Ratio (1.3-2.8) Inocente Results last 24 hrs: Microbiology 01/20/17 15:15 Campylobacter Antigen Assay - Final Stool / Feces - Stool, Liquid NEGATIVE CAMPYLOBACTER AG - Final NEGATIVE FOR SHIGA TOXIN 1 - Final NEGATIVE FOR SHIGA TOXIN 2 01/20/17 15:15 Clostridium difficile Toxin A&B (M) - Final Stool / Feces - Stool, Liquid Negative for C.Diff Toxin/AG 01/20/17 15:15 Stool for WBCs - Final Stool / Feces - Stool, Liquid POSITIVE FOR WBC'S Med Orders - Current: Current Medications Acetaminophen (Tylenol) 650 mg PO Q4H PRN PRN Reason: Pain (Mild 1-3)/fever Last Admin: 01/21/17 08:24 Dose: 650 mg Amiodarone HCl (Cordarone) 50 mg PO DAILY [facility] Last Admin: 01/21/17 08:44 Dose: 50 mg Aspirin (Aspirin) 81 mg PO ONETIME [facility] Calcium Carbonate/Glycine (Tums) 1,000 mg PO ONETIME [facility] Last Admin: 01/20/17 20:36 Dose: 1,000 mg Digoxin (Lanoxin) 125 mcg PO DAILY [facility] Last Admin: 01/21/17 08:45 Dose: 125 mcg Furosemide (Lasix) 80 mg IVPUSH BID [facility] Last Admin: 01/21/17 11:26 Dose: 80 mg Levofloxacin/Dextrose 750 mg/ (Premix) 150 mls @ 100 mls/hr IV Q24H [facility] Last Admin: 01/20/17 16:35 Dose: 100 mls/hr Insulin Aspart (Novolog) 0 unit SUBCUT TIDAC [facility] PRN Reason: Protocol Last Admin: 01/21/17 12:05 Dose: Not Given Insulin Glargine (Lantus Solostar) 36 units SUBCUT DAILY@2100 [facility] Ondansetron HCl (Zofran Odt) 4 mg PO Q4H PRN PRN Reason: nausea, able to take PO Rosuvastatin Calcium (Crestor) 10 mg PO BEDTIME [facility] Last Admin: 01/20/17 20:52 Dose: 10 mg Spironolactone (Aldactone) 25 mg PO DAILY [facility] Warfarin Sodium (Coumadin) 5 mg PO SuMoWeFrSa@1400 [facility] Warfarin Sodium (Coumadin) 7.5 mg PO TuTh@1400 [facility] Discontinued Medications Bumetanide (Bumex) 1 mg IVPUSH ONETIME ONE Stop: 01/20/17 04:39 Last Admin: 01/20/17 04:52 Dose: 1 mg Heparin Sodium (Porcine) (Heparin Sodium) 5,000 units SUBCUT Q8H [facility] Last Admin: 01/20/17 12:28 Dose: 5,000 units Insulin Glargine (Lantus Solostar) 36 units SUBCUT DAILY [facility] Last Admin: 01/21/17 10:11 Dose: Not Given Spironolactone (Aldactone) 25 mg PO DAILY [facility] - Exam General: alert, oriented Lungs: Clear to auscultation, Normal respiratory effort Cardiovascular: Regular Rate, Regular Rhythm Abdomen: bowel sounds present, soft, no tenderness, no distension Extremities: edema (+1 edema) - Problem List Review Problem List Initiated/Reviewed/Updated: Yes - My Orders Last 24 Hours: My Active Orders 01/22/17 09:00 Spironolactone [Aldactone] 25 mg PO DAILY - Plan Plan:: 71-year-old male admitted 01/20/17 for CHF exacerbation with PMH of ischemic cardiomyopathy with bivalve ICD, CAD, A. fib, systolic and diastolic failure, hypertension, hyperlipidemia, peripheral vascular disease, and chronic kidney disease. CHF: will continue diuresis with lasix, echocardiogram pending, have switch antiarrythmics back to amiodarone and digoxin. Htn: Hold hypertensive meds as patient is borderline hypotensive. One febrile episode and some loose stools. Will continue Levaquing for pna coverage. No leukocytosis. Urinary retention: Noted to have some urinary retention in ED which could have contributed to worsening renal function. Espinoza placed in ED and will keep for diuresis. May need urology consult before discharge if unable to void without espinoza. VTE: On Coumadin monitor INR, SCD's.
[2017-01-21] MEDS: Warfarin 5 MG Tab PO SCH (13:09)
[2017-01-21] MEDS: Levofloxacin/Dextrose 5%-Water 750 MG in Premix Bag 1 BAG IV SCH (16:24)
[2017-01-21] MEDS: Rosuvastatin 10 MG Tab PO SCH (21:15)
[2017-01-22] MEDS: Insulin Aspart 100 Units/ML 3 ML Pen SUBCUT SCH ×3 (06:49→16:56)
[2017-01-22] MEDS: Digoxin 125 MCG Tab PO SCH (08:13)
[2017-01-22] MEDS: Acetaminophen 325 MG Tab PO PRN ×3 (08:13→21:19)
[2017-01-22] MEDS: Furosemide 40 MG/4 ML VIAL IVPUSH SCH ×2 (08:13→21:18)
[2017-01-22] MEDS: Spironolactone 25 MG Tab PO SCH (08:13)
[2017-01-22] MEDS: Amiodarone 200 MG Tab PO SCH (08:16)
--- NOTE | 2017-01-22 09:40 | PCM.PN ---
- Review of Systems Systems Review Comment:: shortness of breath improving - Patient Data Vitals - most recent: Last Vital Signs Temp 36.6 C 01/22/17 08:00 Pulse 73 01/22/17 08:00 Resp 21 H 01/22/17 04:00 BP 93/55 L 01/22/17 08:00 Pulse Ox 98 01/22/17 04:00 Weight - most recent: 90 kg I&O - last 24 hours: Intake & Output 01/21/17 01/22/17 01/22/17 22:59 06:59 14:59 Intake Total 1124 700 Output Total 7587 0 Balance -1051 -1350 Lab Results last 24 hrs: Laboratory Results - last 24 hr 01/21/17 01/21/17 01/21/17 Range/Units 11:53 16:39 20:30 WBC (4.0-11.0) K/uL RBC (4.50-5.90) M/uL Hgb (13.0-17.0) g/dL Hct (38.0-50.0) % MCV (80.0-98.0) fL MCH (27.0-32.0) pg MCHC (31.0-37.0) g/dL RDW Std Deviation (28.0-62.0) fl RDW Coeff of Kierra (11.0-15.0) % Plt Count (150-400) K/uL MPV (7.40-12.00) fL Neut % (Auto) (48.0-80.0) % Lymph % (Auto) (16.0-40.0) % [place] % (Auto) (0.0-15.0) % Eos % (Auto) (0.0-7.0) % Baso % (Auto) (0.0-1.5) % Neut # (Auto) (1.4-5.7) K/uL Lymph # (Auto) (0.6-2.4) K/uL [place] # (Auto) (0.0-0.8) K/uL Eos # (Auto) (0.0-0.7) K/uL Baso # (Auto) (0.0-0.1) K/uL Nucleated RBC % /100WBC Nucleated RBCs # K/uL INR (0.86-1.11) Sodium (136-146) mmol/L Potassium (3.5-5.1) mmol/L Chloride (98-110) mmol/L Carbon Dioxide (21-31) mmol/L BUN (6.0-23.0) mg/dL Creatinine (0.6-1.5) mg/dL Est Cr Clr Drug Dosing mL/min Estimated GFR (MDRD) ml/min Glucose (60-110) mg/dL POC Glucose 140 H 90 245 H (60-110) mg/dL Calcium (8.8-10.8) mg/dL Magnesium (1.5-2.3) mEq/L Total Bilirubin (0.1-1.5) mg/dL AST (5-40) IU/L ALT (8-54) IU/L Alkaline Phosphatase (40-150) Total Protein (6.0-8.0) g/dL Albumin (3.4-4.8) g/dL Globulin (2.0-3.5) g/dL Albumin/Globulin Ratio (1.3-2.8) 01/22/17 01/22/17 01/22/17 Range/Units 05:45 05:45 05:45 WBC 6.28 (4.0-11.0) K/uL RBC 3.50 L (4.50-5.90) M/uL Hgb 10.3 L (13.0-17.0) g/dL Hct 33.0 L (38.0-50.0) % MCV 94.3 (80.0-98.0) fL MCH 29.4 (27.0-32.0) pg MCHC 31.2 (31.0-37.0) g/dL RDW Std Deviation 58.0 (28.0-62.0) fl RDW Coeff of Kierra 17 H (11.0-15.0) % Plt Count 120 L (150-400) K/uL MPV 9.10 (7.40-12.00) fL Neut % (Auto) 69.0 (48.0-80.0) % Lymph % (Auto) 17.5 (16.0-40.0) % [place] % (Auto) 9.2 (0.0-15.0) % Eos % (Auto) 4.1 (0.0-7.0) % Baso % (Auto) 0.2 (0.0-1.5) % Neut # (Auto) 4.3 (1.4-5.7) K/uL Lymph # (Auto) 1.1 (0.6-2.4) K/uL [place] # (Auto) 0.6 (0.0-0.8) K/uL Eos # (Auto) 0.3 (0.0-0.7) K/uL Baso # (Auto) 0.0 (0.0-0.1) K/uL Nucleated RBC % 0.0 /100WBC Nucleated RBCs # 0 K/uL INR (0.86-1.11) Sodium 136 (136-146) mmol/L Potassium 3.8 (3.5-5.1) mmol/L Chloride 101 (98-110) mmol/L Carbon Dioxide 26 (21-31) mmol/L BUN 53 H (6.0-23.0) mg/dL Creatinine 1.6 H (0.6-1.5) mg/dL Est Cr Clr Drug Dosing 39.93 mL/min Estimated GFR (MDRD) 42.6 ml/min Glucose 89 (60-110) mg/dL POC Glucose (60-110) mg/dL Calcium 7.7 L (8.8-10.8) mg/dL Magnesium 2.5 H (1.5-2.3) mEq/L Total Bilirubin 1.1 (0.1-1.5) mg/dL AST 55 H (5-40) IU/L ALT 61 H (8-54) IU/L Alkaline Phosphatase 41 (40-150) Total Protein 6.5 (6.0-8.0) g/dL Albumin 3.6 (3.4-4.8) g/dL Globulin 2.9 (2.0-3.5) g/dL Albumin/Globulin Ratio 1.2 L (1.3-2.8) 01/22/17 Range/Units 05:45 WBC (4.0-11.0) K/uL RBC (4.50-5.90) M/uL Hgb (13.0-17.0) g/dL Hct (38.0-50.0) % MCV (80.0-98.0) fL MCH (27.0-32.0) pg MCHC (31.0-37.0) g/dL RDW Std Deviation (28.0-62.0) fl RDW Coeff of Kierra (11.0-15.0) % Plt Count (150-400) K/uL MPV (7.40-12.00) fL Neut % (Auto) (48.0-80.0) % Lymph % (Auto) (16.0-40.0) % [place] % (Auto) (0.0-15.0) % Eos % (Auto) (0.0-7.0) % Baso % (Auto) (0.0-1.5) % Neut # (Auto) (1.4-5.7) K/uL Lymph # (Auto) (0.6-2.4) K/uL [place] # (Auto) (0.0-0.8) K/uL Eos # (Auto) (0.0-0.7) K/uL Baso # (Auto) (0.0-0.1) K/uL Nucleated RBC % /100WBC Nucleated RBCs # K/uL INR 2.21 H (0.86-1.11) Sodium (136-146) mmol/L Potassium (3.5-5.1) mmol/L Chloride (98-110) mmol/L Carbon Dioxide (21-31) mmol/L BUN (6.0-23.0) mg/dL Creatinine (0.6-1.5) mg/dL Est Cr Clr Drug Dosing mL/min Estimated GFR (MDRD) ml/min Glucose (60-110) mg/dL POC Glucose (60-110) mg/dL Calcium (8.8-10.8) mg/dL Magnesium (1.5-2.3) mEq/L Total Bilirubin (0.1-1.5) mg/dL AST (5-40) IU/L ALT (8-54) IU/L Alkaline Phosphatase (40-150) Total Protein (6.0-8.0) g/dL Albumin (3.4-4.8) g/dL Globulin (2.0-3.5) g/dL Albumin/Globulin Ratio (1.3-2.8) [facility] Results last 24 hrs: Microbiology 01/20/17 15:15 Stool Culture - Final Stool / Feces - Stool, Liquid NO SALMONELLA, SHIGELLA,OR E.COLI O157 ISOLATED Campylobacter Antigen Assay - Final NEGATIVE CAMPYLOBACTER AG - Final NEGATIVE FOR SHIGA TOXIN 1 - Final NEGATIVE FOR SHIGA TOXIN 2 Med Orders - Current: Current Medications Acetaminophen (Tylenol) 650 mg PO Q4H PRN PRN Reason: Pain (Mild 1-3)/fever Last Admin: 01/22/17 08:13 Dose: 650 mg Amiodarone HCl (Cordarone) 50 mg PO DAILY [facility] Last Admin: 01/22/17 08:16 Dose: 50 mg Aspirin (Aspirin) 81 mg PO ONETIME [facility] Calcium Carbonate/Glycine (Tums) 1,000 mg PO ONETIME [facility] Last Admin: 01/20/17 20:36 Dose: 1,000 mg Digoxin (Lanoxin) 125 mcg PO DAILY [facility] Last Admin: 01/22/17 08:13 Dose: 125 mcg Furosemide (Lasix) 80 mg IVPUSH BID [facility] Last Admin: 01/22/17 08:13 Dose: 80 mg Levofloxacin/Dextrose 750 mg/ (Premix) 150 mls @ 100 mls/hr IV Q24H [facility] Last Admin: 01/21/17 16:24 Dose: 100 mls/hr Insulin Aspart (Novolog) 0 unit SUBCUT TIDAC [facility] PRN Reason: Protocol Last Admin: 01/22/17 06:49 Dose: Not Given Insulin Glargine (Lantus Solostar) 36 units SUBCUT DAILY@2100 [facility] Last Admin: 01/21/17 21:18 Dose: 36 units Ondansetron HCl (Zofran Odt) 4 mg PO Q4H PRN PRN Reason: nausea, able to take PO Rosuvastatin Calcium (Crestor) 10 mg PO BEDTIME [facility] Last Admin: 01/21/17 21:15 Dose: 10 mg Spironolactone (Aldactone) 25 mg PO DAILY [facility] Last Admin: 01/22/17 08:13 Dose: 25 mg Warfarin Sodium (Coumadin) 5 mg PO SuMoWeFrSa@1400 [facility] Last Admin: 01/21/17 13:09 Dose: 5 mg Warfarin Sodium (Coumadin) 7.5 mg PO TuTh@1400 [facility] Discontinued Medications Bumetanide (Bumex) 1 mg IVPUSH ONETIME ONE Stop: 01/20/17 04:39 Last Admin: 01/20/17 04:52 Dose: 1 mg Heparin Sodium (Porcine) (Heparin Sodium) 5,000 units SUBCUT Q8H [facility] Last Admin: 01/20/17 12:28 Dose: 5,000 units Insulin Glargine (Lantus Solostar) 36 units SUBCUT DAILY [facility] Last Admin: 01/21/17 10:11 Dose: Not Given Spironolactone (Aldactone) 25 mg PO DAILY [facility] - Exam General: alert, oriented Lungs: Clear to auscultation, Normal respiratory effort Cardiovascular: Regular Rate, Regular Rhythm Abdomen: bowel sounds present, soft, no tenderness, no distension Extremities: no edema Skin: warm, dry, intact Neurological: no new focal deficit - Problem List Review Problem List Initiated/Reviewed/Updated: Yes - My Orders Last 24 Hours: My Active Orders 01/22/17 09:00 Spironolactone [Aldactone] 25 mg PO DAILY 01/23/17 05:11 INR,PT,PROTHROMBIN TIME [COAG] AM 01/24/17 05:11 INR,PT,PROTHROMBIN TIME [COAG] AM - Plan Plan:: 71-year-old male admitted 01/20/17 for CHF exacerbation with PMH of ischemic cardiomyopathy with bivalve ICD, CAD, A. fib, systolic and diastolic failure, hypertension, hyperlipidemia, peripheral vascular disease, and chronic kidney disease. CHF: will continue diuresis with lasix, echocardiogram pending, have switch antiarrythmics back to amiodarone and digoxin, will wean oxygen via nasal canual as tolerated. Acute on chronic kidney disease: continues to improve. creatinine 1.6 today Htn: Hold hypertensive meds as patient is borderline hypotensive. One febrile episode and some loose stools. Will continue Levaquing for pna coverage. No leukocytosis. Urinary retention: Noted to have some urinary retention in ED which could have contributed to worsening renal function. Espinoza placed in ED and will keep for diuresis. May need urology consult before discharge if unable to void without espinoza. VTE: On Coumadin monitor INR, SCD's.
[2017-01-22] MEDS: Warfarin 5 MG Tab PO SCH (15:28)
[2017-01-22] MEDS: Levofloxacin/Dextrose 5%-Water 750 MG in Premix Bag 1 BAG IV SCH (16:51)
[2017-01-22] MEDS: Rosuvastatin 10 MG Tab PO SCH (21:19)
[2017-01-22] MEDS: Insulin Glargine,Human Rec. Analog 100 Units/ML 3 ML Pen SUBCUT SCH (21:23)
[2017-01-23] MEDS: Insulin Aspart 100 Units/ML 3 ML Pen SUBCUT SCH ×2 (06:35→11:59)
[2017-01-23] MEDS: Amiodarone 200 MG Tab PO SCH (08:29)
[2017-01-23] MEDS: Furosemide 40 MG/4 ML VIAL IVPUSH SCH (08:29)
[2017-01-23] MEDS: Digoxin 125 MCG Tab PO SCH (08:29)
[2017-01-23] MEDS: Spironolactone 25 MG Tab PO SCH (08:31)
[2017-01-23] MEDS: Acetaminophen 325 MG Tab PO PRN ×2 (08:38→13:05)
[2017-01-23 12:08] VITALS: BP 102/61
[2017-01-23] MEDS: Warfarin 5 MG Tab PO SCH (13:04)
--- NOTE | 2017-01-23 13:41 | PCM.DCSUM1 ---
Discharge Summary - Discharge Data Discharge Date: 01/23/17 Discharge Disposition: Home, Self-Care 01 Condition: Good - Patient Summary/Data Hospital Course: Admission diagnosis CHF exacerbation 71-year-old male admitted on 01/20/17 for CHF exacerbation with PMH of ischemic cardiomyopathy with bivalve ICD, CAD, A. fib, systolic and diastolic failure, hypertension, hyperlipidemia, peripheral vascular disease, and chronic kidney disease. Patient presented with shorntess of breath. noted that she has noticed the begin of his decline after he was changed from amiodarone and digoxin to quinidine and Mexiletine by his through operator and adon Dr. Cheney and Dr. Davison, [facility]. Patient was afebrile with stable blood pressure 110/71 hr 70. He was hypoxic but maintianing O2 sats with OX via NC. CBC was unremarkable, blood gas 7.439 PCO2 33, PO2 57, HCO3 22, INR 2.68. Hyponatremia 132, acute on chronic renal failure BUN 70, CR 2.8, hypocalcemia 8.2, BNP 613. UA unremarkable. Chest x-ray cardiomegaly. Due to concerns of the new antiarrhythmics causing his decompensation he was switched back to his amiodarone and digoxin. Due to low blood pressures of 80s-90s systolic his coreg and lisinopril were held. Echocardiogram reported Ejection Fraction of 25 to 30%. He was treated with IV lasix with improvement in his dyspnea and eventually weaned off oxygen. He had a espinoza placed due to concerns of urinary retention. His creatinine did improve to 1.5. Espinoza was removed prior to discharge. Post void bladder scan reported 273 ml retention. I offered reinsertion of espinoza catheter as his acute kidney injury may be due to urinary rentetion but patient refused. Patient is to follow up with Dr. Martinez and Dr. Cheney. - Discharge Plan Prescriptions/Med Rec: Amiodarone [Cordarone] 50 mg PO DAILY #30 tablet Digoxin [Lanoxin] 125 mcg PO DAILY #30 tablet Home Medications: Home Meds Aspirin 81 mg PO DAILY 07/14/16 [History] Furosemide [Lasix] 20 mg PO QPM 07/14/16 [History] Glimepiride 2 mg PO WITHBREAKFAST 07/14/16 [History] Insulin Glarg,Human.Rec.Analog [Lantus Solostar] 36 - 40 unit SUBCUT DAILY 07/14 [History] Multivitamin [One Daily] 1 each PO DAILY 07/14/16 [History] Nitroglycerin [Nitrostat] 0.4 mg SL ASDIRECTED PRN 07/14/16 [History] Rosuvastatin [Crestor] 10 mg PO BEDTIME 07/14/16 [History] Spironolactone [Aldactone] 25 mg PO DAILY 07/14/16 [History] Warfarin [Coumadin] 5 mg PO DAILY 07/14/16 [History] [place]-3/DHA/Epa/Fish Oil [[place]-3 Fish Oil 1,000 MG Sfgl] 1,000 mg PO DAILY 04/30 [History] Amiodarone [Cordarone] 50 mg PO DAILY #30 tablet 01/23/17 [Rx] Digoxin [Lanoxin] 125 mcg PO DAILY #30 tablet 01/23/17 [Rx] Fosinopril [Monopril] 10 mg PO DAILY #0 01/23/17 [Rx] Furosemide 40 mg PO QAM #0 01/23/17 [Rx] Patient Handouts: Heart Failure, [id number], Acute Urinary Retention, Male, [id number] Referrals: Peterson Shields MD [Physician] - 02/01/17 2:45 pm Peterson Cheney MD [Consulting Physician] - 01/31/17 3:20 pm - Patient Data Vitals - Most Recent: Last Vital Signs Temp 36.2 C 01/23/17 12:00 Pulse 87 01/23/17 12:00 Resp 22 H 01/23/17 12:00 BP 102/61 01/23/17 12:00 Pulse Ox 95 01/23/17 12:00 Weight - Most Recent: 91.7 kg I&O - Last 24 hours: Intake & Output 01/22/17 01/23/17 01/23/17 22:59 06:59 14:59 Intake Total 1150 450 Output Total 20240 Balance -756 -3298 Lab Results - Last 24 hrs: Laboratory Results - last 24 hr 01/22/17 01/22/17 01/23/17 Range/Units 16:29 21:17 05:40 WBC 6.73 (4.0-11.0) K/uL RBC 3.56 L (4.50-5.90) M/uL Hgb 10.4 L (13.0-17.0) g/dL Hct 33.9 L (38.0-50.0) % MCV 95.2 (80.0-98.0) fL MCH 29.2 (27.0-32.0) pg MCHC 30.7 L (31.0-37.0) g/dL RDW Std Deviation 57.8 (28.0-62.0) fl RDW Coeff of Kierra 17 H (11.0-15.0) % Plt Count 138 L (150-400) K/uL MPV 9.50 (7.40-12.00) fL Neut % (Auto) 61.3 (48.0-80.0) % Lymph % (Auto) 20.4 (16.0-40.0) % Hall % (Auto) 13.4 (0.0-15.0) % Eos % (Auto) 4.3 (0.0-7.0) % Baso % (Auto) 0.6 (0.0-1.5) % Neut # (Auto) 4.1 (1.4-5.7) K/uL Lymph # (Auto) 1.4 (0.6-2.4) K/uL Hall # (Auto) 0.9 H (0.0-0.8) K/uL Eos # (Auto) 0.3 (0.0-0.7) K/uL Baso # (Auto) 0.0 (0.0-0.1) K/uL Nucleated RBC % 0.0 /100WBC Nucleated RBCs # 0 K/uL INR (0.86-1.11) Sodium (136-146) mmol/L Potassium (3.5-5.1) mmol/L Chloride (98-110) mmol/L Carbon Dioxide (21-31) mmol/L BUN (6.0-23.0) mg/dL Creatinine (0.6-1.5) mg/dL Est Cr Clr Drug Dosing mL/min Estimated GFR (MDRD) ml/min Glucose (60-110) mg/dL POC Glucose 118 H 115 H (60-110) mg/dL Calcium (8.8-10.8) mg/dL Total Bilirubin (0.1-1.5) mg/dL AST (5-40) IU/L ALT (8-54) IU/L Alkaline Phosphatase (40-150) Total Protein (6.0-8.0) g/dL Albumin (3.4-4.8) g/dL Globulin (2.0-3.5) g/dL Albumin/Globulin Ratio (1.3-2.8) 01/23/17 01/23/17 01/23/17 Range/Units 05:40 05:40 06:26 WBC (4.0-11.0) K/uL RBC (4.50-5.90) M/uL Hgb (13.0-17.0) g/dL Hct (38.0-50.0) % MCV (80.0-98.0) fL MCH (27.0-32.0) pg MCHC (31.0-37.0) g/dL RDW Std Deviation (28.0-62.0) fl RDW Coeff of Kierra (11.0-15.0) % Plt Count (150-400) K/uL MPV (7.40-12.00) fL Neut % (Auto) (48.0-80.0) % Lymph % (Auto) (16.0-40.0) % Hall % (Auto) (0.0-15.0) % Eos % (Auto) (0.0-7.0) % Baso % (Auto) (0.0-1.5) % Neut # (Auto) (1.4-5.7) K/uL Lymph # (Auto) (0.6-2.4) K/uL Hall # (Auto) (0.0-0.8) K/uL Eos # (Auto) (0.0-0.7) K/uL Baso # (Auto) (0.0-0.1) K/uL Nucleated RBC % /100WBC Nucleated RBCs # K/uL INR 1.95 H (0.86-1.11) Sodium 137 (136-146) mmol/L Potassium 4.2 (3.5-5.1) mmol/L Chloride 100 (98-110) mmol/L Carbon Dioxide 29 (21-31) mmol/L BUN 44 H (6.0-23.0) mg/dL Creatinine 1.5 (0.6-1.5) mg/dL Est Cr Clr Drug Dosing 42.59 mL/min Estimated GFR (MDRD) 45.9 ml/min Glucose 97 (60-110) mg/dL POC Glucose 146 H (60-110) mg/dL Calcium 8.0 L (8.8-10.8) mg/dL Total Bilirubin 1.0 (0.1-1.5) mg/dL AST 46 H (5-40) IU/L ALT 59 H (8-54) IU/L Alkaline Phosphatase 44 (40-150) Total Protein 6.7 (6.0-8.0) g/dL Albumin 3.6 (3.4-4.8) g/dL Globulin 3.1 (2.0-3.5) g/dL Albumin/Globulin Ratio 1.2 L (1.3-2.8) 01/23/17 Range/Units 11:53 WBC (4.0-11.0) K/uL RBC (4.50-5.90) M/uL Hgb (13.0-17.0) g/dL Hct (38.0-50.0) % MCV (80.0-98.0) fL MCH (27.0-32.0) pg MCHC (31.0-37.0) g/dL RDW Std Deviation (28.0-62.0) fl RDW Coeff of Kierra (11.0-15.0) % Plt Count (150-400) K/uL MPV (7.40-12.00) fL Neut % (Auto) (48.0-80.0) % Lymph % (Auto) (16.0-40.0) % Hall % (Auto) (0.0-15.0) % Eos % (Auto) (0.0-7.0) % Baso % (Auto) (0.0-1.5) % Neut # (Auto) (1.4-5.7) K/uL Lymph # (Auto) (0.6-2.4) K/uL Hall # (Auto) (0.0-0.8) K/uL Eos # (Auto) (0.0-0.7) K/uL Baso # (Auto) (0.0-0.1) K/uL Nucleated RBC % /100WBC Nucleated RBCs # K/uL INR (0.86-1.11) Sodium (136-146) mmol/L Potassium (3.5-5.1) mmol/L Chloride (98-110) mmol/L Carbon Dioxide (21-31) mmol/L BUN (6.0-23.0) mg/dL Creatinine (0.6-1.5) mg/dL Est Cr Clr Drug Dosing mL/min Estimated GFR (MDRD) ml/min Glucose (60-110) mg/dL POC Glucose 131 H (60-110) mg/dL Calcium (8.8-10.8) mg/dL Total Bilirubin (0.1-1.5) mg/dL AST (5-40) IU/L ALT (8-54) IU/L Alkaline Phosphatase (40-150) Total Protein (6.0-8.0) g/dL Albumin (3.4-4.8) g/dL Globulin (2.0-3.5) g/dL Albumin/Globulin Ratio (1.3-2.8) Med Orders - Current: Current Medications Acetaminophen (Tylenol) 650 mg PO Q4H PRN PRN Reason: Pain (Mild 1-3)/fever Last Admin: 01/23/17 13:05 Dose: 650 mg Amiodarone HCl (Cordarone) 50 mg PO DAILY [facility] Last Admin: 01/23/17 08:29 Dose: 50 mg Aspirin (Aspirin) 81 mg PO ONETIME [facility] Calcium Carbonate/Glycine (Tums) 1,000 mg PO ONETIME [facility] Last Admin: 01/20/17 20:36 Dose: 1,000 mg Digoxin (Lanoxin) 125 mcg PO DAILY [facility] Last Admin: 01/23/17 08:29 Dose: 125 mcg Furosemide (Lasix) 80 mg IVPUSH BID [facility] Last Admin: 01/23/17 08:29 Dose: 80 mg Levofloxacin/Dextrose 750 mg/ (Premix) 150 mls @ 100 mls/hr IV Q24H [facility] Last Admin: 01/22/17 16:51 Dose: 100 mls/hr Insulin Aspart (Novolog) 0 unit SUBCUT TIDAC [facility] PRN Reason: Protocol Last Admin: 01/23/17 11:59 Dose: Not Given Insulin Glargine (Lantus Solostar) 36 units SUBCUT DAILY@2100 [facility] Last Admin: 01/22/17 21:23 Dose: 36 units Ondansetron HCl (Zofran Odt) 4 mg PO Q4H PRN PRN Reason: nausea, able to take PO Rosuvastatin Calcium (Crestor) 10 mg PO BEDTIME [facility] Last Admin: 01/22/17 21:19 Dose: 10 mg Spironolactone (Aldactone) 25 mg PO DAILY [facility] Last Admin: 01/23/17 08:31 Dose: 25 mg Warfarin Sodium (Coumadin) 5 mg PO SuMoWeFrSa@1400 [facility] Last Admin: 01/23/17 13:04 Dose: 5 mg Warfarin Sodium (Coumadin) 7.5 mg PO TuTh@1400 [facility] Warfarin Sodium (Coumadin) 1 mg PO ONETIME [facility] Discontinued Medications Bumetanide (Bumex) 1 mg IVPUSH ONETIME ONE Stop: 01/20/17 04:39 Last Admin: 01/20/17 04:52 Dose: 1 mg Heparin Sodium (Porcine) (Heparin Sodium) 5,000 units SUBCUT Q8H [facility] Last Admin: 01/20/17 12:28 Dose: 5,000 units Insulin Glargine (Lantus Solostar) 36 units SUBCUT DAILY [facility] Last Admin: 01/21/17 10:11 Dose: Not Given Spironolactone (Aldactone) 25 mg PO DAILY [facility] *Q Meaningful Use (DIS) - VTE *Q VTE Criteria *Q: - Stroke *Q Stroke Criteria *Q: - AMI *Q AMI Criteria *Q:
[2017-01-24] MEDS ORDERED: Warfarin 2.5 MG Tab PO SCH (14:00)
--- NOTE | 2017-01-25 15:38 | ECHO ---
EXAM DATE: 01/20/17 PATIENT'S AGE: 71 The echocardiogram report can be seen in this patient's EMR (Electronic Medical Record) in the Reports section. RAUL
== END 2017-01-23 14:05 | disposition home or self-care (01) | DRG 292 ==
LOC: MW.ED 04:14 → MW.MS 06:49 → UNDOADMIN 08:04 → MW.MS 08:35 → UNDOADMIN 08:35 → UNDODISIN 01-23 14:05
PROVIDERS: ADMIT Internal Medicine; ATTEND Internal Medicine
PROC: 0T2BX0Z Change Drainage Device in Bladder, External Approach (ICD-10-PCS; principal; 2017-01-20)
DX: I50.9 Heart failure, unspecified (principal); R09.02 Hypoxemia; R06.00 Dyspnea, unspecified; R60.0 Localized edema; I13.0 Hypertensive heart and chronic kidney disease with heart failure and stage 1 through stage 4 chronic kidney disease, or unspecified chronic kidney disease; E11.9 Type 2 diabetes mellitus without complications; I50.40 Unspecified combined systolic (congestive) and diastolic (congestive) heart failure; N18.9 Chronic kidney disease, unspecified; E11.22 Type 2 diabetes mellitus with diabetic chronic kidney disease; R33.9 Retention of urine, unspecified; I48.2 Chronic atrial fibrillation; R06.01 Orthopnea; I25.10 Atherosclerotic heart disease of native coronary artery without angina pectoris; E78.5 Hyperlipidemia, unspecified; I73.9 Peripheral vascular disease, unspecified; Z79.82 Long term (current) use of aspirin; Z79.899 Other long term (current) drug therapy; Z87.891 Personal history of nicotine dependence; Z95.0 Presence of cardiac pacemaker; R41.82 Altered mental status, unspecified
CPT/HCPCS: 36415; 36600; 70450; 70450-26; 71010; 71010-26; 80053; 81001; 82803; 82962; 83630; 83735; 83880; 84484; 85025; 85610; 87046; 87324; 87899; 93005; 93306; 96374; 99285; 99285-25; A9270-GY; J1644; J1815-GY; J1940; J1956

== ENCOUNTER 2017-07-15 07:47 | Emergency (ER) | payer MEDICARE ==
[2017-07-15 07:58] VITALS: BP 111/59
--- NOTE | 2017-07-15 08:04 | EDM.PDOC ---
ED HPI GENERAL MEDICAL PROBLEM - General Chief Complaint: ENT Problem Stated Complaint: NOSE BLEED Time Seen by Provider: 07/15/17 07:52 Source of Information: Reports: Patient History Limitations: Reports: No Limitations - History of Present Illness INITIAL COMMENTS - FREE TEXT/NARRATIVE: History of present illness: []Patient started having a nosebleed around 3 AM and asked his to bring him to the emergency room after he was unable to get it stopped. Patient is on Coumadin after having heart surgery many years ago. Denies any lightheadedness or dizziness at this time. Review of systems: As per history of present illness and below otherwise all systems reviewed and negative. Past medical history: As per history of present illness and as reviewed below otherwise noncontributory. Surgical history: As per history of present illness and as reviewed below otherwise noncontributory. Social history: No reported history of drug or alcohol abuse. Family history: As per history of present illness and as reviewed below otherwise noncontributory. Physical exam: General: Well developed, well nourished in NAD HEENT: Atraumatic, normocephalic, pupils reactive, negative for conjunctival pallor or scleral icterus, mucous membranes moist, throat clear, neck supple, nontender, trachea midline. Lungs: Clear to auscultation, breath sounds equal bilaterally, chest nontender. Heart: S1S2, regular, negative for clicks, rubs, or JVD. Abdomen: Soft, nondistended, nontender. Negative for masses or hepatosplenomegaly. Negative for costovertebral tenderness. Pelvis: Stable nontender. Genitourinary: Deferred. Rectal: Deferred. Extremities: Atraumatic, negative for cords or calf pain. Neurovascular unremarkable. Neuro: Awake, alert, oriented. Cranial nerves II through XII unremarkable. Cerebellum unremarkable. Motor and sensory unremarkable throughout. Exam nonfocal. Diagnostics: []CBC and INR shows anemia with H&H of 9/28 and INR 2.49 Therapeutics: []Afrin used well as quill fixer with epi and packed. He was observed until the bleeding was stopped. Bleeding site identified and cauterized with silver nitrate well tolerated. Impression: []Epistaxis right nares anterior Plan: []Follow-up ENT as needed Definitive disposition and diagnosis as appropriate pending reevaluation and review of above. - Related Data Allergies Allergy/AdvReac Type Severity Reaction Status Date / Time No Known Allergies Allergy Verified 07/15/17 07:58 Home Meds: Home Meds Aspirin 81 mg PO DAILY 07/14/16 [History] Furosemide [Lasix] 20 mg PO QPM 07/14/16 [History] Glimepiride 2 mg PO WITHBREAKFAST 07/14/16 [History] Insulin Glarg,Human.Rec.Analog [Lantus Solostar] 36 - 40 unit SUBCUT DAILY 07/14 [History] Multivitamin [One Daily] 1 each PO DAILY 07/14/16 [History] Nitroglycerin [Nitrostat] 0.4 mg SL ASDIRECTED PRN 07/14/16 [History] Rosuvastatin [Crestor] 10 mg PO BEDTIME 07/14/16 [History] Spironolactone [Aldactone] 25 mg PO DAILY 07/14/16 [History] Warfarin [Coumadin] 5 mg PO DAILY 07/14/16 [History] [place]-3/DHA/Epa/Fish Oil [[place]-3 Fish Oil 1,000 MG Sfgl] 1,000 mg PO DAILY 04/30 [History] Amiodarone [Cordarone] 50 mg PO DAILY #30 tablet 01/23/17 [Rx] Digoxin [Lanoxin] 125 mcg PO DAILY #30 tablet 01/23/17 [Rx] Fosinopril [Monopril] 10 mg PO DAILY #0 01/23/17 [Rx] Furosemide 40 mg PO QAM #0 01/23/17 [Rx] Past Medical History HEENT History: Reports: Hard of Hearing Cardiovascular History: Reports: Aneurysm, Automatic Implantable Cardioverter Defibrillators, Bypass, Pacemaker Endocrine/Metabolic History: Reports: Diabetes, Type II - Infectious Disease History Infectious Disease History: Reports: Chicken Pox, Measles, Mumps - Past Surgical History HEENT Surgical History: Reports: None Cardiovascular Surgical History: Reports: None Endocrine Surgical History: Reports: None Social & Family History - Family History Family Medical History: Noncontributory - Tobacco Use Smoking Status *Q: Former Smoker Used Tobacco, but Quit: Yes Month Tobacco Last Used: 20 years Second Hand Smoke Exposure: No - Caffeine Use Caffeine Use: Reports: None Caffeine Use Comment: 2-3 cups/day - Recreational Drug Use Recreational Drug Use: No ED ROS ENT - Review of Systems Review Of Systems: See Below (See history of present illness) ED EXAM, ENT - Physical Exam Exam: See Below (See history of present illness) Course - Vital Signs Last Recorded V/S: Last Vital Signs Temp 96.4 F 07/15/17 07:56 Pulse 76 07/15/17 07:56 Resp 18 07/15/17 07:56 BP 111/59 L 07/15/17 07:56 Pulse Ox 90 L 07/15/17 07:56 - Orders/Labs/Meds Labs: Laboratory Tests 07/15/17 07/15/17 Range/Units 08:20 08:20 WBC 8.79 (4.0-11.0) K/uL RBC 3.11 L (4.50-5.90) M/uL Hgb 9.4 L (13.0-17.0) g/dL Hct 28.8 L (38.0-50.0) % MCV 92.6 (80.0-98.0) fL MCH 30.2 (27.0-32.0) pg MCHC 32.6 (31.0-37.0) g/dL RDW Std Deviation 74.9 H (28.0-62.0) fl RDW Coeff of Kierra 23 H (11.0-15.0) % Plt Count 170 (150-400) K/uL MPV 8.90 (7.40-12.00) fL Neut % (Auto) 74.4 (48.0-80.0) % Lymph % (Auto) 9.4 L (16.0-40.0) % Terry % (Auto) 12.4 (0.0-15.0) % Eos % (Auto) 3.5 (0.0-7.0) % Baso % (Auto) 0.3 (0.0-1.5) % Neut # (Auto) 6.5 H (1.4-5.7) K/uL Lymph # (Auto) 0.8 (0.6-2.4) K/uL Terry # (Auto) 1.1 H (0.0-0.8) K/uL Eos # (Auto) 0.3 (0.0-0.7) K/uL Baso # (Auto) 0.0 (0.0-0.1) K/uL Nucleated RBC % 0.0 /100WBC Nucleated RBCs # 0 K/uL INR 2.49 H (0.86-1.11) Meds: Medications Discontinued Medications Generic Name Dose Route Start Last Admin Trade Name Anshu PRN Reason Stop Dose Admin Lidocaine/Epinephrine 20 ml 07/15/17 08:16 07/15/17 08:35 Xylocaine 1% With Epinephrine 1:100,000 INJECT 07/15/17 08:17 Not Given ONETIME ONE Lidocaine/Epinephrine 20 ml 07/15/17 08:30 Xylocaine 2% With Epinephrine 1:100,000 INJECT 07/15/17 08:31 ONETIME ONE Oxymetazoline HCl 1 ml 07/15/17 08:16 Afrin Original 0.05% Nasal [place] RICARDO 07/15/17 08:17 ONETIME ONE Oxymetazoline HCl Confirm 07/15/17 08:18 07/15/17 08:35 Afrin Original 0.05% Nasal [place] Administered 07/15/17 08:19 Not Given Dose 15 ml .ROUTE .STK-MED ONE Departure - Departure Time of Disposition: 09:11 Disposition: Home, Self-Care 01 Condition: Good Clinical Impression: Anterior epistaxis - Discharge Information Referrals: Peterson Shields MD [Primary Care Provider] - Forms: ED Department Discharge Additional Instructions: The following information is given to patients seen in the emergency department who are being discharged to home. This information is to outline your options for follow-up care. We provide all patients seen in our emergency department with a follow-up referral. The need for follow-up, as well as the timing and circumstances, are variable depending upon the specifics of your emergency department visit. If you don't have a primary care physician on staff, we will provide you with a referral. We always advise you to contact your personal physician following an emergency department visit to inform them of the circumstance of the visit and for follow-up with them and/or the need for any referrals to a consulting specialist. The emergency department will also refer you to a specialist when appropriate. This referral assures that you have the opportunity for follow-up care with a specialist. All of these measure are taken in an effort to provide you with optimal care, which includes your follow-up. Under all circumstances we always encourage you to contact your private physician who remains a resource for coordinating your care. When calling for follow-up care, please make the office aware that this follow-up is from your recent emergency room visit. If for any reason you are refused follow-up, please contact the [facility] Emergency Department at and asked to speak to the emergency department charge nurse. Follow-up with ENT or primary care [facility] Specialty Care - ENT [address] [place] [id number]
[2017-07-15] MEDS ORDERED: Oxymetazoline 0.05% Nasal Spray 15 ML Bottle NAS ONE (08:16)
[2017-07-15] MEDS ORDERED: Lidocaine 1% with EPINEPHrine 1:100,000 20 ML MDV INJECT ONE (08:16)
[2017-07-15] MEDS ORDERED: Oxymetazoline 0.05% Nasal Spray 15 ML Bottle ONE (08:18)
[2017-07-15] MEDS ORDERED: Lidocaine 2% with EPINEPHrine 1:100,000 20 ML MDV INJECT ONE (08:30)
== END 2017-07-15 10:13 | disposition home or self-care (01) ==
LOC: MW.ED 07:47
DX: R04.0 Epistaxis (principal); E11.9 Type 2 diabetes mellitus without complications; Z79.82 Long term (current) use of aspirin; Z79.899 Other long term (current) drug therapy; Z79.01 Long term (current) use of anticoagulants; Z87.891 Personal history of nicotine dependence
CPT/HCPCS: 30901; 36415; 85025; 85610; 99283

== ENCOUNTER 2017-07-17 08:23 | Emergency (ER) | payer MEDICARE, OTHER ==
--- NOTE | 2017-07-17 08:32 | EDM.PDOC ---
ED HPI GENERAL MEDICAL PROBLEM - General Stated Complaint: NOSE BLEED Time Seen by Provider: 07/17/17 08:35 Source of Information: Reports: Patient History Limitations: Reports: No Limitations - History of Present Illness INITIAL COMMENTS - FREE TEXT/NARRATIVE: History of present illness: []Patient was here over the weekend with a nosebleed that was cauterized and controlled. Patient is on Coumadin and has continued to take his Coumadin. This morning he blew his nose and started bleeding again. Review of systems: As per history of present illness and below otherwise all systems reviewed and negative. Past medical history: As per history of present illness and as reviewed below otherwise noncontributory. Surgical history: As per history of present illness and as reviewed below otherwise noncontributory. Social history: No reported history of drug or alcohol abuse. Family history: As per history of present illness and as reviewed below otherwise noncontributory. Physical exam: General: Well developed, well nourished in NAD HEENT: Atraumatic, normocephalic, pupils reactive, negative for conjunctival pallor or scleral icterus, mucous membranes moist, throat clear, neck supple, nontender, trachea midline. Lungs: Clear to auscultation, breath sounds equal bilaterally, chest nontender. Heart: S1S2, regular, negative for clicks, rubs, or JVD. Abdomen: Soft, nondistended, nontender. Negative for masses or hepatosplenomegaly. Negative for costovertebral tenderness. Pelvis: Stable nontender. Genitourinary: Deferred. Rectal: Deferred. Extremities: Atraumatic, negative for cords or calf pain. Neurovascular unremarkable. Neuro: Awake, alert, oriented. Cranial nerves II through XII unremarkable. Cerebellum unremarkable. Motor and sensory unremarkable throughout. Exam nonfocal. Diagnostics: []CBC and INR rechecked Therapeutics: []Right nares is packed with a Rhino Rocket Impression: []Epistaxis Plan: []Follow-up with ENT or your primary doctor in 1-2 days to have packing removed take Keflex 3 times a day until packing is removed Definitive disposition and diagnosis as appropriate pending reevaluation and review of above. - Related Data Allergies Allergy/AdvReac Type Severity Reaction Status Date / Time No Known Allergies Allergy Verified 07/15/17 07:58 Home Meds: Home Meds Aspirin 81 mg PO DAILY 07/14/16 [History] Furosemide [Lasix] 20 mg PO QPM 07/14/16 [History] Glimepiride 2 mg PO WITHBREAKFAST 07/14/16 [History] Insulin Glarg,Human.Rec.Analog [Lantus Solostar] 36 - 40 unit SUBCUT DAILY 07/14 [History] Multivitamin [One Daily] 1 each PO DAILY 07/14/16 [History] Nitroglycerin [Nitrostat] 0.4 mg SL ASDIRECTED PRN 07/14/16 [History] Rosuvastatin [Crestor] 10 mg PO BEDTIME 07/14/16 [History] Spironolactone [Aldactone] 25 mg PO DAILY 07/14/16 [History] Warfarin [Coumadin] 5 mg PO DAILY 07/14/16 [History] Salkum-3/DHA/Epa/Fish Oil [Salkum-3 Fish Oil 1,000 MG Sfgl] 1,000 mg PO DAILY 04/30 [History] Amiodarone [Cordarone] 50 mg PO DAILY #30 tablet 01/23/17 [Rx] Digoxin [Lanoxin] 125 mcg PO DAILY #30 tablet 01/23/17 [Rx] Fosinopril [Monopril] 10 mg PO DAILY #0 01/23/17 [Rx] Furosemide 40 mg PO QAM #0 01/23/17 [Rx] Cephalexin [Keflex] 500 mg PO TID #21 capsule 07/17/17 [Rx] Past Medical History HEENT History: Reports: Hard of Hearing Cardiovascular History: Reports: Aneurysm, Automatic Implantable Cardioverter Defibrillators, Bypass, Pacemaker Endocrine/Metabolic History: Reports: Diabetes, Type II - Infectious Disease History Infectious Disease History: Reports: Chicken Pox, Measles, Mumps - Past Surgical History HEENT Surgical History: Reports: None Cardiovascular Surgical History: Reports: None Endocrine Surgical History: Reports: None Social & Family History - Family History Family Medical History: Noncontributory - Tobacco Use Smoking Status *Q: Former Smoker Used Tobacco, but Quit: Yes Month Tobacco Last Used: 20 years Second Hand Smoke Exposure: No - Caffeine Use Caffeine Use: Reports: None Caffeine Use Comment: 2-3 cups/day - Recreational Drug Use Recreational Drug Use: No ED ROS ENT - Review of Systems Review Of Systems: See Below (See history of present illness) ED EXAM, ENT - Physical Exam Exam: See Below (See history of present illness) Course - Vital Signs Last Recorded V/S: Last Vital Signs Temp 98.6 F 07/17/17 08:52 Pulse 71 07/17/17 08:52 Resp 16 07/17/17 08:52 BP 95/50 L 07/17/17 08:52 Pulse Ox 94 L 07/17/17 08:52 - Orders/Labs/Meds Labs: Laboratory Tests 07/17/17 07/17/17 Range/Units 08:58 08:58 WBC 9.91 (4.0-11.0) K/uL RBC 3.13 L (4.50-5.90) M/uL Hgb 9.6 L (13.0-17.0) g/dL Hct 29.2 L (38.0-50.0) % MCV 93.3 (80.0-98.0) fL MCH 30.7 (27.0-32.0) pg MCHC 32.9 (31.0-37.0) g/dL RDW Std Deviation 75.6 H (28.0-62.0) fl RDW Coeff of Kierra 22 H (11.0-15.0) % Plt Count 187 (150-400) K/uL MPV 8.70 (7.40-12.00) fL Neut % (Auto) 76.1 (48.0-80.0) % Lymph % (Auto) 11.5 L (16.0-40.0) % [place] % (Auto) 8.1 (0.0-15.0) % Eos % (Auto) 3.8 (0.0-7.0) % Baso % (Auto) 0.5 (0.0-1.5) % Neut # (Auto) 7.5 H (1.4-5.7) K/uL Lymph # (Auto) 1.1 (0.6-2.4) K/uL [place] # (Auto) 0.8 (0.0-0.8) K/uL Eos # (Auto) 0.4 (0.0-0.7) K/uL Baso # (Auto) 0.1 (0.0-0.1) K/uL Nucleated RBC % 0.0 /100WBC Nucleated RBCs # 0 K/uL INR 2.21 H (0.86-1.11) Meds: Medications Discontinued Medications Generic Name Dose Route Start Last Admin Trade Name Anshu PRN Reason Stop Dose Admin Lidocaine HCl 20 ml 07/17/17 08:33 07/17/17 09:27 Xylocaine 1% INJECT 07/17/17 08:34 20 ml ONETIME ONE Administration Departure - Departure Time of Disposition: 09:31 Disposition: Home, Self-Care 01 Condition: Good Clinical Impression: Epistaxis - Discharge Information Prescriptions: Cephalexin [Keflex] 500 mg PO TID #21 capsule Referrals: Peterson Shields MD [Primary Care Provider] - Additional Instructions: The following information is given to patients seen in the emergency department who are being discharged to home. This information is to outline your options for follow-up care. We provide all patients seen in our emergency department with a follow-up referral. The need for follow-up, as well as the timing and circumstances, are variable depending upon the specifics of your emergency department visit. If you don't have a primary care physician on staff, we will provide you with a referral. We always advise you to contact your personal physician following an emergency department visit to inform them of the circumstance of the visit and for follow-up with them and/or the need for any referrals to a consulting specialist. The emergency department will also refer you to a specialist when appropriate. This referral assures that you have the opportunity for follow-up care with a specialist. All of these measure are taken in an effort to provide you with optimal care, which includes your follow-up. Under all circumstances we always encourage you to contact your private physician who remains a resource for coordinating your care. When calling for follow-up care, please make the office aware that this follow-up is from your recent emergency room visit. If for any reason you are refused follow-up, please contact the Emergency Department at and asked to speak to the emergency department charge nurse. Follow-up with ENT or your primary care doctor in 1-2 days to have packing removed. Specialty Care - ENT [address] [place] [id number] [facility] [address] [place] [id number]
[2017-07-17] MEDS ORDERED: Lidocaine 1% 20 ML MDV INJECT ONE (08:33)
[2017-07-17 08:59] VITALS: BP 95/50
== END 2017-07-17 09:40 | disposition home or self-care (01) ==
LOC: MW.ED 08:23
DX: R04.0 Epistaxis (principal); E11.9 Type 2 diabetes mellitus without complications; Z79.82 Long term (current) use of aspirin; Z79.4 Long term (current) use of insulin; Z79.01 Long term (current) use of anticoagulants; Z79.899 Other long term (current) drug therapy; Z87.891 Personal history of nicotine dependence
CPT/HCPCS: 30903; 36415; 85025; 85610; 99282

== ENCOUNTER 2017-07-24 08:25 | Emergency (ER) | payer MEDICARE ==
[2017-07-24] MEDS ORDERED: Sodium Chloride 0.9% 250 ML IV ONE (09:05)
[2017-07-24] MEDS ORDERED: Sodium Chloride 0.9% 2.5 ML Syringe FLUSH PRN (09:05)
[2017-07-24] MEDS ORDERED: Sodium Chloride 0.9% 10 ML Syringe FLUSH PRN (09:05)
[2017-07-24] MEDS ORDERED: Sodium Chloride 0.9% 1,000 ML IV ONE (09:52)
--- NOTE | 2017-07-24 10:13 | EDM.PDOC ---
ED HPI GENERAL MEDICAL PROBLEM - General Chief Complaint: ENT Problem Stated Complaint: NOSE BLEED Time Seen by Provider: 07/24/17 08:59 Source of Information: Reports: Patient History Limitations: Reports: No Limitations - History of Present Illness INITIAL COMMENTS - FREE TEXT/NARRATIVE: History of present illness: []Patient has had revisits to the ED for a right nares no bleed that has been packed previously and he was instructed to follow-up with ENT. He followed up with his primary care physician and Dr. Shields lowered his Coumadin dosages and had no recurrent bleeding until today when he blew his nose this morning. Review of systems: As per history of present illness and below otherwise all systems reviewed and negative. Past medical history: As per history of present illness and as reviewed below otherwise noncontributory. Surgical history: As per history of present illness and as reviewed below otherwise noncontributory. Social history: No reported history of drug or alcohol abuse. Family history: As per history of present illness and as reviewed below otherwise noncontributory. Physical exam: General: Well developed, well nourished in NAD HEENT: Atraumatic, normocephalic, pupils reactive, negative for conjunctival pallor or scleral icterus, mucous membranes moist, throat clear, neck supple, nontender, trachea midline. Right nares with clot adhered to the nasal septum anteriorly. Lungs: Clear to auscultation, breath sounds equal bilaterally, chest nontender. Heart: S1S2, regular, negative for clicks, rubs, or JVD. Abdomen: Soft, nondistended, nontender. Negative for masses or hepatosplenomegaly. Negative for costovertebral tenderness. Pelvis: Stable nontender. Genitourinary: Deferred. Rectal: Deferred. Extremities: Atraumatic, negative for cords or calf pain. Neurovascular unremarkable. Neuro: Awake, alert, oriented. Cranial nerves II through XII unremarkable. Cerebellum unremarkable. Motor and sensory unremarkable throughout. Exam nonfocal. Diagnostics: []CBC shows a stable H&H of 9 and 28 and INR is 1.73. Therapeutics: []Patient blow his nose to remove the clot however it remained attached. No active bleeding therefore chose to leave it alone for now and let him follow up with ENT tomorrow. Impression: []Right nares epistaxis Plan: []Follow-up with Dr. Frausto at 3:45 tomorrow July 25. Return to ED or follow up with Dr. Frausto if bleeding recurs Definitive disposition and diagnosis as appropriate pending reevaluation and review of above. - Related Data Allergies Allergy/AdvReac Type Severity Reaction Status Date / Time No Known Allergies Allergy Verified 07/24/17 09:00 Home Meds: Home Meds Aspirin 81 mg PO DAILY 07/14/16 [History] Furosemide [Lasix] 20 mg PO QPM 07/14/16 [History] Glimepiride 2 mg PO WITHBREAKFAST 07/14/16 [History] Insulin Glarg,Human.Rec.Analog [Lantus Solostar] 36 - 40 unit SUBCUT DAILY 07/14 [History] Multivitamin [One Daily] 1 each PO DAILY 07/14/16 [History] Nitroglycerin [Nitrostat] 0.4 mg SL ASDIRECTED PRN 07/14/16 [History] Rosuvastatin [Crestor] 10 mg PO BEDTIME 07/14/16 [History] Spironolactone [Aldactone] 25 mg PO DAILY 07/14/16 [History] Warfarin [Coumadin] 5 mg PO DAILY 07/14/16 [History] Rogers-3/DHA/Epa/Fish Oil [Rogers-3 Fish Oil 1,000 MG Sfgl] 1,000 mg PO DAILY 04/30 [History] Amiodarone [Cordarone] 50 mg PO DAILY #30 tablet 01/23/17 [Rx] Digoxin [Lanoxin] 125 mcg PO DAILY #30 tablet 01/23/17 [Rx] Fosinopril [Monopril] 10 mg PO DAILY #0 01/23/17 [Rx] Furosemide 40 mg PO QAM #0 01/23/17 [Rx] Cephalexin [Keflex] 500 mg PO TID #21 capsule 07/17/17 [Rx] Past Medical History - Past Health History Medical/Surgical History: Denies Medical/Surgical History HEENT History: Reports: Hard of Hearing, Impaired Vision Other HEENT History: wears glasses Cardiovascular History: Reports: Aneurysm, Automatic Implantable Cardioverter Defibrillators, Bypass, Hypertension, Pacemaker Endocrine/Metabolic History: Reports: Diabetes, Type II - Infectious Disease History Infectious Disease History: Reports: Chicken Pox, Measles, Mumps - Past Surgical History Cardiovascular Surgical History: Reports: Coronary Artery Bypass Endocrine Surgical History: Reports: None Social & Family History - Family History Family Medical History: Noncontributory - Tobacco Use Smoking Status *Q: Never Smoker Used Tobacco, but Quit: Yes Month Tobacco Last Used: 20 years Second Hand Smoke Exposure: No - Caffeine Use Caffeine Use: Reports: None Caffeine Use Comment: 2-3 cups/day - Recreational Drug Use Recreational Drug Use: No ED ROS ENT - Review of Systems Review Of Systems: See Below (See history of present illness) ED EXAM, ENT - Physical Exam Exam: See Below (See history of present illness) Course - Vital Signs Last Recorded V/S: Last Vital Signs Temp 97.6 F 07/24/17 09:00 Pulse 75 07/24/17 10:09 Resp 18 07/24/17 10:09 BP 95/62 07/24/17 10:09 Pulse Ox 100 07/24/17 10:09 - Orders/Labs/Meds Orders: Active Orders 24 hr Category Date Time Status Sodium Chloride 0.9% [Normal Saline] 1,000 ml Med 07/24/17 09:52 Active IV .Bolus Sodium Chloride 0.9% [Saline Flush] Med 07/24/17 09:05 Active 10 ml FLUSH ASDIRECTED PRN Sodium Chloride 0.9% [Saline Flush] Med 07/24/17 09:05 Active 2.5 ml FLUSH ASDIRECTED PRN Saline Lock Insert [OM.PC] Stat Oth 07/24/17 09:05 Ordered Medication Orders Sodium Chloride (Normal Saline) 1,000 mls @ 999 mls/hr IV .Bolus ONE Stop: 07/24/17 10:52 Last Admin: 07/24/17 09:52 Dose: 999 mls/hr Sodium Chloride (Saline Flush) 10 ml FLUSH ASDIRECTED PRN PRN Reason: Keep Vein Open Sodium Chloride (Saline Flush) 2.5 ml FLUSH ASDIRECTED PRN PRN Reason: Keep Vein Open Labs: Laboratory Tests 07/24/17 07/24/17 Range/Units 09:24 09:24 WBC 7.28 (4.0-11.0) K/uL RBC 3.09 L (4.50-5.90) M/uL Hgb 9.6 L (13.0-17.0) g/dL Hct 29.7 L (38.0-50.0) % MCV 96.1 (80.0-98.0) fL MCH 31.1 (27.0-32.0) pg MCHC 32.3 (31.0-37.0) g/dL RDW Std Deviation 80.1 H (28.0-62.0) fl RDW Coeff of Kierra 23 H (11.0-15.0) % Plt Count 167 (150-400) K/uL MPV 8.70 (7.40-12.00) fL Neut % (Auto) 74.0 (48.0-80.0) % Lymph % (Auto) 14.3 L (16.0-40.0) % [place] % (Auto) 7.8 (0.0-15.0) % Eos % (Auto) 3.6 (0.0-7.0) % Baso % (Auto) 0.3 (0.0-1.5) % Neut # (Auto) 5.4 (1.4-5.7) K/uL Lymph # (Auto) 1.0 (0.6-2.4) K/uL [place] # (Auto) 0.6 (0.0-0.8) K/uL Eos # (Auto) 0.3 (0.0-0.7) K/uL Baso # (Auto) 0.0 (0.0-0.1) K/uL Nucleated RBC % 0.0 /100WBC Nucleated RBCs # 0 K/uL INR 1.73 H (0.86-1.11) Meds: Medications Generic Name Dose Route Start Last Admin Trade Name Freq PRN Reason Stop Dose Admin Sodium Chloride 1,000 mls @ 999 mls/hr 07/24/17 09:52 07/24/17 09:52 Normal Saline IV 07/24/17 10:52 999 mls/hr .Bolus ONE Administration Sodium Chloride 10 ml 07/24/17 09:05 Saline Flush FLUSH ASDIRECTED PRN Keep Vein Open Sodium Chloride 2.5 ml 07/24/17 09:05 Saline Flush FLUSH ASDIRECTED PRN Keep Vein Open Discontinued Medications Generic Name Dose Route Start Last Admin Trade Name Freq PRN Reason Stop Dose Admin Sodium Chloride 250 mls @ 999 mls/hr 07/24/17 09:05 07/24/17 09:33 Normal Saline IV 12/11/17 09:20 999 mls/hr .Bolus ONE Administration Departure - Departure Time of Disposition: 10:23 Disposition: Home, Self-Care 01 Condition: Good Clinical Impression: Epistaxis - Discharge Information Referrals: PCP,Unknown [Primary Care Provider] - Forms: ED Department Discharge Additional Instructions: The following information is given to patients seen in the emergency department who are being discharged to home. This information is to outline your options for follow-up care. We provide all patients seen in our emergency department with a follow-up referral. The need for follow-up, as well as the timing and circumstances, are variable depending upon the specifics of your emergency department visit. If you don't have a primary care physician on staff, we will provide you with a referral. We always advise you to contact your personal physician following an emergency department visit to inform them of the circumstance of the visit and for follow-up with them and/or the need for any referrals to a consulting specialist. The emergency department will also refer you to a specialist when appropriate. This referral assures that you have the opportunity for follow-up care with a specialist. All of these measure are taken in an effort to provide you with optimal care, which includes your follow-up. Under all circumstances we always encourage you to contact your private physician who remains a resource for coordinating your care. When calling for follow-up care, please make the office aware that this follow-up is from your recent emergency room visit. If for any reason you are refused follow-up, please contact the Emergency Department at and asked to speak to the emergency department charge nurse. Follow-up with Dr. Frausto tomorrow at 3:45 PM. Follow nosebleed precautions as instructed. Return if he really bleeding occurs in your unable to control it after going out clots and holding pressure for 15 minutes. Specialty Care - ENT [address] [place] [id number] - My Orders Last 24 Hours: My Active Orders 07/24/17 09:05 Sodium Chloride 0.9% [Saline Flush] 10 ml FLUSH ASDIRECTED PRN Sodium Chloride 0.9% [Saline Flush] 2.5 ml FLUSH ASDIRECTED PRN Saline Lock Insert [OM.PC] Stat 07/24/17 09:52 Sodium Chloride 0.9% [Normal Saline] 1,000 ml IV .Bolus - Assessment/Plan Last 24 Hours: My Active Orders 07/24/17 09:05 Sodium Chloride 0.9% [Saline Flush] 10 ml FLUSH ASDIRECTED PRN Sodium Chloride 0.9% [Saline Flush] 2.5 ml FLUSH ASDIRECTED PRN Saline Lock Insert [OM.PC] Stat 07/24/17 09:52 Sodium Chloride 0.9% [Normal Saline] 1,000 ml IV .Bolus
[2017-07-24 10:37] VITALS: BP 97/67
== END 2017-07-24 10:37 | disposition home or self-care (01) ==
LOC: MW.ED 08:25
DX: R04.0 Epistaxis (principal); E11.9 Type 2 diabetes mellitus without complications; Z79.82 Long term (current) use of aspirin; Z79.899 Other long term (current) drug therapy; Z79.4 Long term (current) use of insulin; Z79.01 Long term (current) use of anticoagulants
CPT/HCPCS: 36415; 85025; 85610; 99283; J7040

== ENCOUNTER 2017-10-18 21:42 | Emergency (ER) | payer MEDICARE ==
[~2017-10-18 21:42] MED LIST: CEFTAZIDIME IV ONE; DEXTROSE 5% IV ONE; WATER IV ONE
[2017-10-18 21:59] VITALS: BP 110/64
[2017-10-18] MEDS ORDERED: Sodium Chloride 0.9% 10 ML Syringe FLUSH PRN (21:59)
[2017-10-18] MEDS ORDERED: Sodium Chloride 0.9% 2.5 ML Syringe FLUSH PRN (21:59)
--- NOTE | 2017-10-18 22:06 | EDM.PDOC ---
ED HPI GENERAL MEDICAL PROBLEM - General Chief Complaint: Respiratory Problem Stated Complaint: FALL/SHORTNESS OF BREATH Time Seen by Provider: 10/18/17 21:52 - History of Present Illness INITIAL COMMENTS - FREE TEXT/NARRATIVE: HISTORY AND PHYSICAL: History of present illness: The patient is a 72-year-old male with a significant past medical history which includes A. fib and congestive heart failure hypercholesterolemia diabetes chronic renal insufficiency and surgery on his right foot with prolonged infection. The patient presents via EMS after saying that this afternoon he started feeling more short of breath very much like when he has fluid overload but had no chest pain fever or upper respiratory symptoms and he had a near syncopal event where he went to his knees prompting his to call EMS. The patient states that before this afternoon he was not short of breath and had no flulike symptoms. He's been eating and drinking normally and has no abdominal complaints. The patient was seen by Dr. Trujillo on October 12 and had a wound culture done of this toe he's currently taking Bactrim for a toe infection but the culture results have been reviewed by me and it is sensitive to that. They had a scheduled appointment tomorrow for follow-up with her to discuss the wound. 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 He normally follows in our family practice clinic. The feels that the foot looks worse than before and both the patient and the states that over the last few days his blood sugar has been very erratic and poorly controlled. They feel that this is due to the infection. The patient on my evaluation says he feels much better on oxygen and he has no chest pain. He doesn't have any discrete foot pain and has no new trauma to the foot. As a result of almost trying to pass out he has no complaints of head neck or back pain and no new extremity complaints and according to who was present and patient he did not completely pass out. He does not feel dizzy or woozy. He has no nausea or vomiting. Currently on oxygen he is feeling better from his shortness of breath. Patient also has a pacemaker Review of systems: As per history of present illness and below otherwise all systems reviewed and negative. Past medical history: As per history of present illness and as reviewed below otherwise noncontributory. Surgical history: As per history of present illness and as reviewed below otherwise noncontributory. Social history: No reported history of drug or alcohol abuse. Family history: As per history of present illness and as reviewed below otherwise noncontributory. Physical exam: Gen.: Well-developed overweight man who is nontoxic and somewhat breathless on my evaluation and his O2 sat is 88% on room air but 98% on oxygen. HEENT: Atraumatic, normocephalic, pupils reactive, negative for conjunctival pallor or scleral icterus, mucous membranes moist, throat clear, neck supple, nontender, trachea midline. There are no midline step-offs tenderness defects of the cervical spine Lungs: Severely diminished breath sounds on the right side with some crackles heard at the bases and crackles and coarse breath sounds heard on the left with diminished breath sounds at the left base. There is abdominal work of breathing but no stridor or wheezing chest nontender. Pacemaker appreciated and chest wall Heart: S1S2, regular, negative for clicks, and no overt murmurs are appreciated Abdomen: Soft, nondistended, nontender. Abdomen is rotund and there is some tympany on percussion but there is actually no tenderness rebound or guarding Negative for masses or hepatosplenomegaly. Negative for costovertebral tenderness. Pelvis: Stable nontender. Genitourinary: Deferred. Rectal: Deferred. Extremities: Atraumatic, negative for cords or calf pain. Neurovascular unremarkable. Full range of motion of all extremities and there are no palpable bony deformities or tenderness appreciated. At the right foot the second toe is missing and there was a dressing in place which I removed and there is a foul- smelling gauze present with visible wound and malodorous smell and drainage and some diffuse erythema of the distal foot to the metatarsals without crepitus. The foot is warm. Neuro: Awake, alert, oriented. Cranial nerves II through XII unremarkable. Cerebellum unremarkable. Motor and sensory unremarkable throughout. Exam nonfocal. Back: There are no midline step-offs tenderness defects of the thoracic or lumbar spine and no posterior rib or posterior pelvis tenderness. There is no visible evidence of any soft tissue injuries Diagnostics: EKG CBC CMP BNP INR troponin UA lactic acid blood cultures CT scan of the head chest x-ray right foot x-ray Therapeutics: IV O2 monitor Tdap, Fortaz, calcium gluconate, sodium bicarbonate, insulin, Kayexalate Patient has multiple significantly abnormal labs including an elevated INR and elevated potassium and elevated troponin and bump in his BUN and creatinine. His chest x-ray is being read by the radiologist as no change from old so it is concerning that his renal function is driving his shortness of breath. He has not produced a urine yet and I will encourage him to do so otherwise we will perform a straight catheter prior to leaving. The patient will be transferred due to acute renal failure. He does have a history per the computer of renal insufficiency. says he did have urine output prior to coming here. Patient is still continuing to have abdominal work or breathing but is maintaining his O2 sats and his ABG has been reviewed. Respiratory therapy has evaluated for possible sleep apnea in light of the ABG and the patient's maintaining his O2 sats we will hold at this time and defer to flight team. We will plan on transfer to and [place] where they have nephrology. The patient and are also aware of my concerns about the x-ray of the foot and the poorly healing foot. His wound culture from October 12 was reviewed and it has Pseudomonas and it was sensitive to Fortaz which I have ordered prior to departure. I've also ordered medications to stabilize his potassium. 2340: Case was discussed with Dr. Hill at [facility] in [place] who accepts the patient for transfer. All imaging has been pushed to them and flight team has been called. Critical care time excluding procedures-35 minutes Impression: Acute renal failure on chronic renal insufficiency, right foot infection poorly healing with Pseudomonas rule out septic toe/foot, acute dyspnea and hypoxia Definitive disposition and diagnosis as appropriate pending reevaluation and review of above. Treatments LOAD DISPATCHER: Reports: IV/IO denies pain Pain Score (Numeric/FACES): 0 - Related Data Allergies Allergy/AdvReac Type Severity Reaction Status Date / Time No Known Allergies Allergy Verified 10/18/17 21:54 Home Meds: Home Meds Aspirin 81 mg PO DAILY 07/14/16 [History] Glimepiride 2 mg PO WITHBREAKFAST 07/14/16 [History] Insulin Glarg,Human.Rec.Analog [Lantus Solostar] 40 unit SUBCUT BEDTIME [History] Multivitamin [One Daily] 1 each PO DAILY 07/14/16 [History] Nitroglycerin [Nitrostat] 0.4 mg SL ASDIRECTED PRN 07/14/16 [History] Rosuvastatin [Crestor] 10 mg PO BEDTIME 07/14/16 [History] Spironolactone [Aldactone] 25 mg PO DAILY 07/14/16 [History] [place]-3/DHA/Epa/Fish Oil [[place]-3 Fish Oil 1,000 MG Sfgl] 1,000 mg PO DAILY 04/30 [History] Acetaminophen 325 - 650 mg PO Q6H 07/24/17 [History] Carvedilol [Coreg] 25 mg PO BID 07/24/17 [History] Fosinopril Sodium 20 mg PO BID 07/24/17 [History] Furosemide 40 - 60 mg PO TID 07/24/17 [History] Warfarin [Coumadin] 1 mg PO DAILY 07/24/17 [History] Past Medical History - Past Health History Medical/Surgical History: Denies Medical/Surgical History HEENT History: Reports: Hard of Hearing, Impaired Vision Other HEENT History: wears glasses Cardiovascular History: Reports: Aneurysm, Automatic Implantable Cardioverter Defibrillators, Bypass, Hypertension, Pacemaker Endocrine/Metabolic History: Reports: Diabetes, Type II - Infectious Disease History Infectious Disease History: Reports: Chicken Pox, Measles, Mumps - Past Surgical History Cardiovascular Surgical History: Reports: Coronary Artery Bypass Endocrine Surgical History: Reports: None Social & Family History - Family History Family Medical History: Noncontributory - Tobacco Use Smoking Status *Q: Never Smoker Used Tobacco, but Quit: Yes Month Tobacco Last Used: 20 years Second Hand Smoke Exposure: No - Caffeine Use Caffeine Use: Reports: None Caffeine Use Comment: 2-3 cups/day - Recreational Drug Use Recreational Drug Use: No ED ROS GENERAL - Review of Systems Review Of Systems: ROS reveals no pertinent complaints other than HPI. ED EXAM, GENERAL - Physical Exam Exam: See Below (See dictation) Course - Vital Signs Last Recorded V/S: Last Vital Signs Temp 36 C 10/18/17 21:50 Pulse 73 10/18/17 21:50 Resp 28 H 10/18/17 21:50 BP 110/64 10/18/17 21:50 Pulse Ox 97 10/18/17 21:55 - Orders/Labs/Meds Orders: Active Orders 24 hr Category Date Time Status Blood Glucose Check, Bedside [RC] ONETIME Care 10/18/17 23:38 Active CPAP Adult [RT BiPAP/CPAP] [RC] ASDIRECTED Care 10/18/17 23:32 Inactive Cardiac Monitoring [RC] . DIRECTED Care 10/18/17 21:58 Active Communication Order [RC] STAT Care 10/18/17 23:40 Active EKG Documentation Completion [RC] STAT Care 10/18/17 21:58 Active Oxygen Therapy, ED [RC] ASDIRECTED Care 10/18/17 21:58 Active Pulse Oximetry [RC] ASDIRECTED Care 10/18/17 21:58 Active Vaccines to be Administered [RC] PER UNIT ROUTINE Care 10/18/17 23:45 Active Chest 1V Frontal [CR] Stat Exams 10/18/17 21:59 Taken Foot 2V Rt [CR] Stat Exams 10/18/17 21:59 Taken Head wo Cont [CT] Stat Exams 10/18/17 21:59 Taken CULTURE BLOOD [BC] Stat Lab 10/18/17 22:11 Received CULTURE BLOOD [BC] Stat Lab 10/18/17 22:26 Received UA W/MICROSCOPIC [URIN] Stat Lab 10/18/17 21:59 Ordered Sodium Chloride 0.9% [Saline Flush] Med 10/18/17 21:59 Active 10 ml FLUSH ASDIRECTED PRN Sodium Chloride 0.9% [Saline Flush] Med 10/18/17 21:59 Active 2.5 ml FLUSH ASDIRECTED PRN Blood Culture x2 Reflex Set [OM.PC] Stat Oth 10/18/17 21:59 Ordered Saline Lock Insert [OM.PC] Stat Oth 10/18/17 21:58 Ordered Medication Orders Sodium Chloride (Saline Flush) 10 ml FLUSH ASDIRECTED PRN PRN Reason: Keep Vein Open Sodium Chloride (Saline Flush) 2.5 ml FLUSH ASDIRECTED PRN PRN Reason: Keep Vein Open Labs: Laboratory Tests 10/18/17 10/18/17 10/18/17 Range/Units 22:11 22:11 22:11 WBC 16.09 H (4.0-11.0) K/uL RBC 3.19 L (4.50-5.90) M/uL Hgb 10.0 L (13.0-17.0) g/dL Hct 30.1 L (38.0-50.0) % MCV 94.4 (80.0-98.0) fL MCH 31.3 (27.0-32.0) pg MCHC 33.2 (31.0-37.0) g/dL RDW Std Deviation 54.7 (28.0-62.0) fl RDW Coeff of Kierra 16 H (11.0-15.0) % Plt Count 280 (150-400) K/uL MPV 8.50 (7.40-12.00) fL Add Manual Diff YES Neutrophils % (Manual) 87 H (48.0-80.0) % Band Neutrophils % 2 % Lymphocytes % (Manual) 5 L (16.0-40.0) % Monocytes % (Manual) 4 (0.0-15.0) % Eosinophils % (Manual) 2 (0.0-7.0) % Nucleated RBC % 0.0 /100WBC Absolute Seg Neuts 14.0 H (1.4-5.7) Band Neutrophils # 0.3 Lymphocytes # (Manual) 0.8 (0.6-2.4) Monocytes # (Manual) 0.6 (0.0-0.8) Eosinophils # (Manual) 0.3 (0.0-0.7) Nucleated RBCs # 0 K/uL INR 7.47 H* ABG pH (7.35-7.45) ABG pCO2 (35-45) mmHG ABG pO2 (75-100) mmHG ABG HCO3 (22-26) mEq/L ABG Total CO2 ABG Base Excess (-2.0-2.0) Lactate (0.20-2.00) mmol/L Sodium 127 L (136-148) mmol/L Potassium 8.3 H* (3.5-5.1) mmol/L Chloride 95 L (98-107) mmol/L Carbon Dioxide 23.0 (21.0-32.0) mmol/L BUN 66 H (7.0-18.0) mg/dL Creatinine 2.5 H (0.8-1.3) mg/dL Est Cr Clr Drug Dosing 25.92 mL/min Estimated GFR (MDRD) 25.4 ml/min Glucose 288 H (74-106) mg/dL Calcium 8.8 (8.5-10.1) mg/dL Total Bilirubin 0.2 (0.2-1.0) mg/dL AST 48 H (15-37) IU/L ALT 78 H (14-63) IU/L Alkaline Phosphatase 95 (46-116) U/L Troponin I 0.136 H* (0.000-0.056) ng/mL B-Natriuretic Peptide (<100) PG/ML Total Protein 7.6 (6.4-8.2) g/dL Albumin 2.8 L (3.4-5.0) g/dL Globulin 4.8 H (2.0-3.5) g/dL Albumin/Globulin Ratio 0.6 L (1.3-2.8) 10/18/17 10/18/17 10/18/17 Range/Units 22:11 22:11 23:45 WBC (4.0-11.0) K/uL RBC (4.50-5.90) M/uL Hgb (13.0-17.0) g/dL Hct (38.0-50.0) % MCV (80.0-98.0) fL MCH (27.0-32.0) pg MCHC (31.0-37.0) g/dL RDW Std Deviation (28.0-62.0) fl RDW Coeff of Kierra (11.0-15.0) % Plt Count (150-400) K/uL MPV (7.40-12.00) fL Add Manual Diff Neutrophils % (Manual) (48.0-80.0) % Band Neutrophils % % Lymphocytes % (Manual) (16.0-40.0) % Monocytes % (Manual) (0.0-15.0) % Eosinophils % (Manual) (0.0-7.0) % Nucleated RBC % /100WBC Absolute Seg Neuts (1.4-5.7) Band Neutrophils # Lymphocytes # (Manual) (0.6-2.4) Monocytes # (Manual) (0.0-0.8) Eosinophils # (Manual) (0.0-0.7) Nucleated RBCs # K/uL INR ABG pH 7.344 L (7.35-7.45) ABG pCO2 39 (35-45) mmHG ABG pO2 130 H (75-100) mmHG ABG HCO3 21 L (22-26) mEq/L ABG Total CO2 20.0 ABG Base Excess -4.2 L (-2.0-2.0) Lactate 1.8 (0.20-2.00) mmol/L Sodium (136-148) mmol/L Potassium (3.5-5.1) mmol/L Chloride (98-107) mmol/L Carbon Dioxide (21.0-32.0) mmol/L BUN (7.0-18.0) mg/dL Creatinine (0.8-1.3) mg/dL Est Cr Clr Drug Dosing mL/min Estimated GFR (MDRD) ml/min Glucose (74-106) mg/dL Calcium (8.5-10.1) mg/dL Total Bilirubin (0.2-1.0) mg/dL AST (15-37) IU/L ALT (14-63) IU/L Alkaline Phosphatase (46-116) U/L Troponin I (0.000-0.056) ng/mL B-Natriuretic Peptide 568 H (<100) PG/ML Total Protein (6.4-8.2) g/dL Albumin (3.4-5.0) g/dL Globulin (2.0-3.5) g/dL Albumin/Globulin Ratio (1.3-2.8) Meds: Medications Generic Name Dose Route Start Last Admin Trade Name Freq PRN Reason Stop Dose Admin Sodium Chloride 10 ml 10/18/17 21:59 Saline Flush FLUSH ASDIRECTED PRN Keep Vein Open Sodium Chloride 2.5 ml 10/18/17 21:59 Saline Flush FLUSH ASDIRECTED PRN Keep Vein Open Discontinued Medications Generic Name Dose Route Start Last Admin Trade Name Freq PRN Reason Stop Dose Admin Calcium Gluconate 1 gm 10/18/17 23:37 Calcium Gluconate IVPUSH 10/18/17 23:38 ONETIME ONE Diphtheria/Tetanus/Acell Pertussis 0.5 ml 10/18/17 23:45 Adacel IM 10/18/17 23:46 .ONCE ONE Ceftazidime 2 gm/ Dextrose/ 100 mls @ 200 mls/hr 10/18/17 00:34 Water IV 10/18/17 01:03 ONETIME ONE Insulin Human Regular 10 unit 10/18/17 23:38 Novolin R IVPUSH 10/18/17 23:39 ONETIME ONE Protocol Sodium Bicarbonate 50 meq 03/07/18 23:38 Sodium Bicarbonate 8.4% IVPUSH 10/18/17 23:39 ONETIME ONE Sodium Polystyrene Sulfonate 30 gm 10/18/17 23:38 Kayexalate PO 10/18/17 23:39 ONETIME ONE Departure - Departure Time of Disposition: 23:58 Disposition: DC/Tfer to [facility] Condition: Fair Clinical Impression: Hyperkalemia, Foot infection, Acute dyspnea Acute on chronic renal failure Qualifiers: Acute renal failure type: unspecified Chronic kidney disease stage: unspecified stage Qualified Code(s): N17.9 - Acute kidney failure, unspecified; N18.9 - Chronic kidney disease, unspecified; N18.9 - Chronic kidney disease, unspecified - Discharge Information Referrals: PCP,None [Primary Care Provider] - Forms: ED Department Discharge - My Orders Last 24 Hours: My Active Orders 10/18/17 21:58 Cardiac Monitoring [RC] . DIRECTED EKG Documentation Completion [RC] STAT Oxygen Therapy, ED [RC] ASDIRECTED Pulse Oximetry [RC] ASDIRECTED Saline Lock Insert [OM.PC] Stat 10/18/17 21:59 Chest 1V Frontal [CR] Stat Foot 2V Rt [CR] Stat Head wo Cont [CT] Stat UA W/MICROSCOPIC [URIN] Stat Sodium Chloride 0.9% [Saline Flush] 10 ml FLUSH ASDIRECTED PRN Sodium Chloride 0.9% [Saline Flush] 2.5 ml FLUSH ASDIRECTED PRN Blood Culture x2 Reflex Set [OM.PC] Stat 10/18/17 22:11 CULTURE BLOOD [BC] Stat 10/18/17 22:26 CULTURE BLOOD [BC] Stat 10/18/17 23:32 CPAP Adult [RT BiPAP/CPAP] [RC] ASDIRECTED 10/18/17 23:38 Blood Glucose Check, Bedside [RC] ONETIME 10/18/17 23:40 Communication Order [RC] STAT 10/18/17 23:45 Vaccines to be Administered [RC] PER UNIT ROUTINE - Assessment/Plan Last 24 Hours: My Active Orders 10/18/17 21:58 Cardiac Monitoring [RC] . DIRECTED EKG Documentation Completion [RC] STAT Oxygen Therapy, ED [RC] ASDIRECTED Pulse Oximetry [RC] ASDIRECTED Saline Lock Insert [OM.PC] Stat 10/18/17 21:59 Chest 1V Frontal [CR] Stat Foot 2V Rt [CR] Stat Head wo Cont [CT] Stat UA W/MICROSCOPIC [URIN] Stat Sodium Chloride 0.9% [Saline Flush] 10 ml FLUSH ASDIRECTED PRN Sodium Chloride 0.9% [Saline Flush] 2.5 ml FLUSH ASDIRECTED PRN Blood Culture x2 Reflex Set [OM.PC] Stat 10/18/17 22:11 CULTURE BLOOD [BC] Stat 10/18/17 22:26 CULTURE BLOOD [BC] Stat 10/18/17 23:32 CPAP Adult [RT BiPAP/CPAP] [RC] ASDIRECTED 10/18/17 23:38 Blood Glucose Check, Bedside [RC] ONETIME 10/18/17 23:40 Communication Order [RC] STAT 10/18/17 23:45 Vaccines to be Administered [RC] PER UNIT ROUTINE
[2017-10-18] MEDS ORDERED: Calcium Gluconate 10% 1 GM/10 ML SDV IVPUSH ONE (23:37)
[2017-10-18] MEDS ORDERED: Sodium Polystyrene Sulfonate 15 GM/60 ML Susp 60 ML Bot PO ONE (23:38)
[2017-10-18] MEDS ORDERED: Insulin Regular, Human 100 Units/ML 10 ML Vial IVPUSH ONE (23:38)
[2017-10-18] MEDS ORDERED: Sodium Bicarbonate 8.4% 50 MEQ/50 ML Syringe IVPUSH ONE (23:38)
[2017-10-18] MEDS ORDERED: Diphtheria,Pertussis(Acell),Tetanus Vaccine 0.5 ML Syringe IM ONE (23:45)
--- NOTE | 2017-10-19 10:20 | CR ---
EXAM DATE: 10/18/17 PATIENT'S AGE: 72 Patient: TERRENCE ROBERTSON Facility: [place], [place] Site . Site : 1945 Study: XRay Chest [id number] 11:26:12 PM Ordering Physician: Viri Peraza Final Report: INDICATION: Shortness of breath TECHNIQUE: Chest 1 views COMPARISON: January 20, 2017 FINDINGS: Cardiovascular and mediastinum: Pacemaker device is unchanged. Stable cardiomegaly. Pulmonary vasculature is within normal limits. Lungs and pleural spaces: There are low lung volumes. Lungs and pleural spaces otherwise appear clear. Bones and soft tissues: No significant findings. IMPRESSION: No acute findings and no significant changes from the prior exam. Dictated by Matthias Estrada MD @ 10/18/2017 11:34:46 PM Dictated by: Matthias Estrada MD @ 10/18/2017 23:34:49 (Electronic Signature) Report Signed by Proxy. [facility]PITALMariia
--- NOTE | 2017-10-19 10:21 | CR ---
EXAM DATE: 10/18/17 PATIENT'S AGE: 72 Patient: TERRENCE ROBERTSON Facility: [place], [place] Site . Site : 1945 Study: XRay Extremity Right foot [id number] 11:26:44 PM Ordering Physician: Viri Peraza Final Report: Indication: Infection. Technique: Right foot 2 views Comparison: None Findings: Phalanges in the 2nd toe have been resected. Severe irregular lytic and sclerotic changes are present in the 1st MTP joint with adjacent soft tissue swelling. This finding is concerning for a septic joint. No other signs of osteomyelitis or soft tissue infection. Remainder of the right foot is unremarkable. Dictated by Matthias Estrada MD @ 10/18/2017 11:37:35 PM Dictated by: Matthias Estrada MD @ 10/18/2017 23:37:42 (Electronic Signature) Report Signed by Proxy. RAUL
--- NOTE | 2017-10-19 10:22 | CT ---
EXAM DATE: 10/18/17 PATIENT'S AGE: 72 Patient: TERRENCE ROBERTSON Facility: [place], [place] Site . Site : 1945 Study: CT Head [id number] 11:38:36 PM Ordering Physician: Viri Peraza Final Report: CT HEAD DATE: 10/18/2017 CLINICAL HISTORY: Patient with dizziness. TECHNIQUE: Standard CT scanning of the head was performed. COMPARISON: None. FINDINGS: There is no intracranial hemorrhage. The larson matter-white matter differentiation is intact. There are mild to moderate microangiopathic changes. There is diffuse parenchymal volume loss. There is no mass effect or midline shift. The calvarium is unremarkable. The orbits are unremarkable. The paranasal sinuses are unremarkable. The mastoid air cells are unremarkable. The soft tissues are unremarkable. IMPRESSION: 1. No intracranial hemorrhage or territorial infarction. 2. Mild to moderate microangiopathic changes and diffuse parenchymal volume loss. Dictated by: Franky Blanco MD @ 10/18/2017 23:45:35 (Electronic Signature) Report Signed by Proxy. [facility]
== END 2017-10-19 00:35 ==
LOC: MW.ED 21:42
DX: I13.0 Hypertensive heart and chronic kidney disease with heart failure and stage 1 through stage 4 chronic kidney disease, or unspecified chronic kidney disease (principal); I50.9 Heart failure, unspecified; E87.5 Hyperkalemia; R55 Syncope and collapse; R09.02 Hypoxemia; R06.00 Dyspnea, unspecified; E11.22 Type 2 diabetes mellitus with diabetic chronic kidney disease; N17.9 Acute kidney failure, unspecified; N18.9 Chronic kidney disease, unspecified; I48.91 Unspecified atrial fibrillation; E78.00 Pure hypercholesterolemia, unspecified; L08.9 Local infection of the skin and subcutaneous tissue, unspecified; Z79.82 Long term (current) use of aspirin; Z79.4 Long term (current) use of insulin; Z79.899 Other long term (current) drug therapy; Z79.01 Long term (current) use of anticoagulants; Z87.891 Personal history of nicotine dependence
CPT/HCPCS: 36415; 36600; 70450; 71045; 73620; 80053; 81001; 82803; 82962; 83605; 83880; 84484; 85025; 85610; 87040; 93005; 96365; 96375; 99285; A9270; J0610; J0713; J7060; J1815-GY